=== PATIENT | male | born 1995 | race Caucasian/White ===

== ENCOUNTER 2019-09-26 21:13 | Inpatient (IN) ==
--- OUTSIDE RECORDS SUMMARY | 2019-09-26 21:17 | External Medical Summary | Continuity of Care Document ---
:1995 Author Name Crystal Angulo Address Unavailable Unavailable , Care Team Providers Name Role Phone Unavailable Unavailable Unavailable Pedro Bro M.D. Unavailable [email or web address] Unavailable Unavailable Unavailable Unavailable Unavailable Problems Asthma (493.90) (J45.909) Allergic rhinitis (477.9) (J30.9) Allergies and Adverse Reactions Penicillins (Allergy) Medications Albuterol Sulfate (2.5 MG/3ML) 0.083% In halation Nebulization Solution; INHALE ONE VIAL FOUR TIMES DAILY NEEDED Kev Bro Start: 01-Sep-2012 Quantity: 90 Refills: 6 Mary [facility] 30 MG TABS; TA KE ONE TABLET BY MOUTH TWICE DAILY NEEDED Kev Bro Start: 14-Apr-2011 Quantity: 60 Refills: 7 Procedures Procedures not documented Immunizations Influenza On: 22-Aug-2009 Plan of Treatment Planned Observations Planned Goals not documented Results No Known Results Results not documented
[2019-09-26] MEDS ORDERED: SODIUM CHLORIDE 0.9% 1000ML 1,000 ML IV ONE ×2 (22:31→23:40)
--- NOTE | 2019-09-26 22:51 | XRay Report ---
SINGLE VIEW CHEST CLINICAL HISTORY: Atypical chest pain. FINDINGS: An AP, portable, upright chest radiograph is obtained. No prior studies are available for c omparison at the time of dictation. The patient is status post midline sternotomy. The heart is enlar ged. The pulmonary vasculature is noncongested. A small left pleural effusion is identified with asso ciated left basilar atelectasis. The right lung appears clear. No pneumothorax is seen. The bony thor ax is grossly intact. IMPRESSION: 1. Cardiomegaly without radiographic evidence of congestive failure. 2. Small left pleural effusion. Electronically signed by: Wing Salter M.D. 09/26/2019 10:50 PM
[2019-09-26 23:12] LABS: Basophils # (auto) 0.03 K/uL (0-0.2); Basophils % (auto) 0.3 %; Eosinophils # (auto) 0.05 K/uL (0-0.5); Eosinophils % (auto) 0.5 %; Hematocrit (blood only) 41.7 % (42-52); Immature Granulocytes # (auto) 0.03 K/uL (0.00-0.02); Immature Granulocytes % (auto) 0.3 %; Lymphocytes # (auto) 1.24 K/uL (1.2-3.4); Lymphocytes % (auto) 11.2 %; Mean Corpuscular Hemoglobin 30.8 pg (25-34); Mean Corpuscular Hgb Conc 33.6 g/dL (32-36); Mean Corpuscular Volume 91.6 fL (80-100); Mean Platelet Volume 11.1 fL (7.4-10.4); Monocytes % (auto) 12.6 %; Neutrophils # (auto) 8.32 K/uL (1.4-6.5); Neutrophils % (auto) 75.1 %; Platelet Count 320 K/uL (130-400); RDW Coefficient of Variation 12.4 % (11.5-14.5); Red Blood Count 4.55 M/uL (4.7-6.1); White Blood Count 11.07 K/uL (4.8-10.8)
[2019-09-26 23:18] LABS: Alanine Aminotransferase 14 U/L (12-78); Albumin Level 4.2 gm/dl (3.4-5.0); Aspartate Aminotransferase 8 U/L (15-37); BUN Creatinine Ratio 9.8 (10-20); Blood Urea Nitrogen 12 mg/dl (7-18); Calcium 9.1 mg/dl (8.5-10.1); Carbon Dioxide 29 mmol/L (21-32); Chloride 100 mmol/L (98-107); Creatinine Clr Calc Pharmacy 92.3 ml/min; Est GFR (African American) 99.6; Est GFR (Non-African American) 85.9; Glucose 108 mg/dl (70-99); Lipase 95 U/L (73-393); Magnesium 1.9 mg/dl (1.8-2.4); Potassium 3.4 mmol/L (3.5-5.1); Sodium 138 mmol/L (136-145)
[2019-09-26 23:29] LABS: Alkaline Phosphatase 68 U/L (45-117); Bilirubin,Total 0.6 mg/dl (0.2-1); Globulin 4.2 gm/dl (2.5-4.0); Phosphorus 3.8 mg/dl (2.5-4.9); Thyroid Stimulating Hormone 0.326 uIu/ml (0.300-4.500); Total Protein 8.4 gm/dl (6.4-8.2); Troponin I < 0.015 ng/ml (0-0.045)
[2019-09-27 00:23] LABS: Influenza A virus by PCR Neg for Influ A (Neg); Influenza B virus by PCR Neg for Influ B (Neg)
[2019-09-27] MEDS ORDERED: DOXYCYCLINE HYCLATE 100 MG in DEXTROSE 5% 100 ML IV STA (01:52)
[2019-09-27] MEDS ORDERED: cefTRIAXone SODIUM 2,000 MG/70 ML BAG IV STA (01:52)
[2019-09-27] MEDS ORDERED: COLCHICINE 0.6 MG TAB PO ONE (01:52)
[2019-09-27] MEDS ORDERED: SODIUM CHLORIDE 0.9% 1000ML 1,000 ML IV STA (01:57)
[2019-09-27 02:41] LABS: Lyme Ab IgG w/WB Rflx Negative (Negative); Lyme Ab IgM w/WB Rflx Negative (Negative)
--- NOTE | 2019-09-27 03:27 | Emergency Department Note ---
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 He notes that he had a fever prior to arrival at 100.8. The patient reports that he had an aortic valve repaired a month ago. He notes that there was a bigeminy abnormality which was caused by bicuspid regurgitation. He states that he has been more fatigued on exertion lately. He notes that he has been having increased heart rate, when it normally is around 70 bpm. He reports that he has chills and loss of appetite. He denies any sore throat, burning during urination, cough, or congestion, chest pain, shortness of breath, headache, dizziness. Home Medications Home Medications Medication Instructions Recorded Confirmed Type aspirin [Aspir-81] 162 mg PO QDL 09/26/19 09/26/19 History ibuprofen 400 mg PO HS 09/26/19 09/26/19 History metoprolol tartrate 50 mg PO AMHS 09/26/19 09/26/19 History Allergies Allergy/AdvReac Type Severity Reaction Status Date / Time animal dander Allergy Intermediate ITCHY Verified 09/26/19 22:40 EYES, SNEEZING, CAN TRIGGER ASTHMA ATTACK. Past Med/Surg History Medical History Bicuspid aortic valve determined by imaging (Chronic) Essential tremor (Chronic) Social History Feels Safe at Home: Yes Smoking Status: Never smoker Review of Systems See HPI for pertinent positives & negatives. and A total of 10 systems reviewed and were otherwise negative Physical Exam Vital Signs Vital Signs - 24 hr 09/26/19 21:16 09/26/19 21:26 09/26/19 21:38 Temperature 36.4 C L Temperature Source Oral Sepsis Recent Fever Within 48 Hours No Sepsis Action Taken by Nursing No Action Required Pulse Rate 142 H 126 H 119 H Pulse Rate [Apical] Pulse Rate from SpO2 Sensor 127 H 119 H Respiratory Rate 18 22 24 Respiratory Effort / Characteristics Non-Labored Spontaneous Respiratory Depth Normal Blood Pressure 118/75 124/87 Blood Pressure [Right Arm] Blood Pressure Mean 89 99 Blood Pressure Mean [Right Arm] Pulse Oximetry 96 100 100 Oxygen Delivery Method Room Air 09/26/19 22:00 09/26/19 22:13 09/26/19 22:21 Temperature Temperature Source Sepsis Recent Fever Within 48 Hours Sepsis Action Taken by Nursing Pulse Rate 122 H 120 H Pulse Rate [Apical] Pulse Rate from SpO2 Sensor 121 H 120 H Respiratory Rate 27 H 25 H Respiratory Effort / Characteristics Respiratory Depth Blood Pressure 118/81 Blood Pressure [Right Arm] Blood Pressure Mean 93 Blood Pressure Mean [Right Arm] Pulse Oximetry 100 100 Oxygen Delivery Method Room Air 09/26/19 23:39 09/27/19 01:31 Temperature Temperature Source Sepsis Recent Fever Within 48 Hours Sepsis Action Taken by Nursing Pulse Rate Pulse Rate [Apical] 112 H 113 H Pulse Rate from SpO2 Sensor Respiratory Rate 16 16 Respiratory Effort / Characteristics Non-Labored Spontaneous Non-Labored Spontaneous Respiratory Depth Normal Normal Blood Pressure Blood Pressure [Right Arm] 123/88 121/81 Blood Pressure Mean Blood Pressure Mean [Right Arm] 99 94 Pulse Oximetry 100 99 Oxygen Delivery Method Room Air Room Air GENERAL: Awake, alert, fatigued-appearing, in no distress HENT: Normocephalic, atraumatic. Oropharynx with dry mucous membranes and otherwise unremarkable. EYES: Normal conjunctiva. Sclera non-icteric. NECK: Supple. No nuchal rigidity. FROM. No JVD. RESPIRATORY: Diminished left base. Otherwise, CTAB. CARDIAC: Tachycardic rate, Regular rhythm. Extremities warm and well perfused. Pulses equal. ABDOMEN: Soft, non-distended. No tenderness to palpation. No rebound or guarding. No masses. RECTAL: Deferred. MUSCULOSKELETAL: Chest examination reveals no tenderness. Sternal scar clean, dry, intact without erythema, warmth, or tenderness. The back is symmetrical on inspection without obvious abnormality. There is no CVA tenderness to palpation. No joint edema. LOWER EXTREMITIES: Calves are equal size bilaterally and non-tender. No edema. No discoloration. NEURO: Normal sensorium. No sensory or motor deficits noted. SKIN: No rash or jaundice noted. Course 2226: The patient was evaluated in room B2, and a complete history and physical examination were performed. Administered Medications Sodium Chloride (Nss 1000ml) 1,000 mls @ 250 mls/hr IV .Q4H STA Stop: 09/27/19 05:56 Last Admin: 09/27/19 02:22 Dose: 250 mls/hr Documented by: [id number] Discontinued Medications Colchicine (Colcrys) 0.6 mg PO NOW ONE Stop: 09/27/19 01:53 Last Admin: 09/27/19 02:22 Dose: 0.6 mg Documented by: [id number] Sodium Chloride (Nss 1000ml) 1,000 mls @ 999 mls/hr IV .Q1H1M ONE Stop: 09/26/19 23:31 Last Infusion: 09/27/19 00:19 Dose: 0 mls/hr Documented by: [id number] Admin: 09/26/19 23:16 Dose: 999 mls/hr Documented by: [id number] Sodium Chloride (Nss 1000ml) 1,000 mls @ 999 mls/hr IV .Q1H1M ONE Stop: 09/27/19 00:40 Last Infusion: 09/27/19 01:31 Dose: 0 mls/hr Documented by: [id number] Admin: 09/26/19 23:52 Dose: 999 mls/hr Documented by: [id number] Ceftriaxone Sodium (Rocephin) 2,000 mg in 70 mls @ 140 mls/hr IV NOW STA Stop: 09/27/19 02:21 Last Infusion: 09/27/19 02:58 Dose: 0 mls/hr Documented by: [id number] Admin: 09/27/19 02:22 Dose: 140 mls/hr Documented by: [id number] Medical Decision Making Differential Diagnosis Differential diagnosis: Etiologies such as viral syndrome, otitis, pharyngitis, pneumonia, influenza, meningitis, urinary tract infection, sepsis, bacteremia, as well as others were entertained. Medical Records Attestation: I reviewed the patient's medical records. Home Medications Current Medication List: was personally reviewed by me Laboratory Data Attestation: I reviewed the patient's lab results. Result diagrams: 09/26/19 21:35 09/26/19 21:35 Lab Results 09/26/19 09/26/19 09/26/19 Range/Units 21:35 21:35 21:35 WBC 11.07 H (4.8-10.8) K/uL RBC 4.55 L (4.7-6.1) M/uL Hgb 14.0 (14.0-18.0) g/dL Hct 41.7 L (42-52) % MCV 91.6 (80-100) fL MCH 30.8 (25-34) pg MCHC 33.6 (32-36) g/dL RDW Std Deviation 42.0 (36.4-46.3) fL RDW Coeff of Jefferson 12.4 (11.5-14.5) % Plt Count 320 (130-400) K/uL MPV 11.1 H (7.4-10.4) fL Immature Gran % (Auto) 0.3 % Neut % (Auto) 75.1 % Lymph % (Auto) 11.2 % Platte % (Auto) 12.6 % Eos % (Auto) 0.5 % Baso % (Auto) 0.3 % Immature Gran # (Auto) 0.03 H (0.00-0.02) K/uL Neut # (Auto) 8.32 H (1.4-6.5) K/uL Lymph # (Auto) 1.24 (1.2-3.4) K/uL Platte # (Auto) 1.40 H (0.11-0.59) K/uL Eos # (Auto) 0.05 (0-0.5) K/uL Baso # (Auto) 0.03 (0-0.2) K/uL Sodium 138 (136-145) mmol/L Potassium 3.4 L (3.5-5.1) mmol/L Chloride 100 (98-107) mmol/L Carbon Dioxide 29 (21-32) mmol/L Anion Gap 9.0 (3-11) BUN 12 (7-18) mg/dl Creatinine 1.20 (0.6-1.4) mg/dl Est Cr Clr Drug Dosing 92.3 ml/min Est GFR ( Amer) 99.6 Est GFR (Non-Af Amer) 85.9 BUN/Creatinine Ratio 9.8 L (10-20) Glucose 108 H (70-99) mg/dl Calcium 9.1 (8.5-10.1) mg/dl Phosphorus 3.8 (2.5-4.9) mg/dl Magnesium 1.9 (1.8-2.4) mg/dl Total Bilirubin 0.6 (0.2-1) mg/dl AST 8 L (15-37) U/L ALT 14 (12-78) U/L Alkaline Phosphatase 68 (45-117) U/L Troponin I < 0.015 (0-0.045) ng/ml Total Protein 8.4 H (6.4-8.2) gm/dl Albumin 4.2 (3.4-5.0) gm/dl Globulin 4.2 H (2.5-4.0) gm/dl Albumin/Globulin Ratio 1.0 (0.9-2) Lipase 95 (73-393) U/L TSH 0.326 (0.300-4.500) uIu/ml Anaplasma Smear See Comment A. phagocytophilum DNA Lyme Disease IgG Ab (Negative) Lyme Disease IgM Ab (Negative) Influenza Type A (PCR) (Neg) Influenza Type B (PCR) (Neg) 09/26/19 09/26/19 09/26/19 Range/Units 21:35 21:35 23:35 WBC (4.8-10.8) K/uL RBC (4.7-6.1) M/uL Hgb (14.0-18.0) g/dL Hct (42-52) % MCV (80-100) fL MCH (25-34) pg MCHC (32-36) g/dL RDW Std Deviation (36.4-46.3) fL RDW Coeff of Jefferson (11.5-14.5) % Plt Count (130-400) K/uL MPV (7.4-10.4) fL Immature Gran % (Auto) % Neut % (Auto) % Lymph % (Auto) % Platte % (Auto) % Eos % (Auto) % Baso % (Auto) % Immature Gran # (Auto) (0.00-0.02) K/uL Neut # (Auto) (1.4-6.5) K/uL Lymph # (Auto) (1.2-3.4) K/uL Platte # (Auto) (0.11-0.59) K/uL Eos # (Auto) (0-0.5) K/uL Baso # (Auto) (0-0.2) K/uL Sodium (136-145) mmol/L Potassium (3.5-5.1) mmol/L Chloride (98-107) mmol/L Carbon Dioxide (21-32) mmol/L Anion Gap (3-11) BUN (7-18) mg/dl Creatinine (0.6-1.4) mg/dl Est Cr Clr Drug Dosing ml/min Est GFR ( Amer) Est GFR (Non-Af Amer) BUN/Creatinine Ratio (10-20) Glucose (70-99) mg/dl Calcium (8.5-10.1) mg/dl Phosphorus (2.5-4.9) mg/dl Magnesium (1.8-2.4) mg/dl Total Bilirubin (0.2-1) mg/dl AST (15-37) U/L ALT (12-78) U/L Alkaline Phosphatase (45-117) U/L Troponin I (0-0.045) ng/ml Total Protein (6.4-8.2) gm/dl Albumin (3.4-5.0) gm/dl Globulin (2.5-4.0) gm/dl Albumin/Globulin Ratio (0.9-2) Lipase (73-393) U/L TSH (0.300-4.500) uIu/ml Anaplasma Smear A. phagocytophilum DNA Cancelled Lyme Disease IgG Ab Negative (Negative) Lyme Disease IgM Ab Negative (Negative) Influenza Type A (PCR) Neg for Influ A (Neg) Influenza Type B (PCR) Neg for Influ B (Neg) Imaging Data Radiologist's Impression: Radiology results as stated below per my review and the radiologist's interpretation: SINGLE VIEW CHEST CLINICAL HISTORY: Atypical chest pain. FINDINGS: An AP, portable, upright chest radiograph is obtained. No prior studies are available for comparison at the time of dictation. The patient is status post midline sternotomy. The heart is enlarged. The pulmonary vasculature is noncongested. A small left pleural effusion is identified with associated left basilar atelectasis. The right lung appears clear. No pneumothorax is seen. The bony thorax is grossly intact. IMPRESSION: 1. Cardiomegaly without radiographic evidence of congestive failure. 2. Small left pleural effusion. Electronically signed by: Wing Salter M.D. 09/26/2019 10:50 PM ECG Data Attestation: I personally reviewed and interpreted this ECG as follows: Indication: + tachycardia Rate (beats per minute): 123 Rhythm: + sinus tachycardia (Lvh) ECG Findings: + Other (T wave abnormality in lateral leads, no overt ischemic changes) Blood Pressure Blood Pressure Findings: Elevated blood pressure Blood Pressure Disposition: did not require urgent referral MDM Narrative The patient is a pleasant 23-year-old gentleman with a past medical history of bicuspid aortic valve status post aortic valve repair at [facility] at the end of July who presents emergency department with fevers to 100.8 at home with tachycardia per hpi. Of note, the patient reports he was treated for pericarditis following his procedure with 3 weeks of colchicine and ibuprofen. The review of the patient's [facility] report from the [facility] EMR does describe a small pneumothorax on the left which was resolved without intervention and a left pleural effusion that was showing improvement. The patient denies any recent infectious symptoms such as cough, congestion, nausea, vomiting diarrhea. He also denies any chest pain or shortness of breath. He denies difficulty lying flat. On arrival patient is in no acute distress, afebrile with heart rate in the 120-40s but vital signs otherwise stable. The patient appears clinically dry. He is nontoxic appearing. Initial EKG on arrival with heart rate in the 120s shows sinus tachycardia with LVH and T wave inversions in V5 V6 which are new when compared to EKG from 08/24 in the [facility] system. CXR with cardiomegaly without evidence of congestive failure. Left pleural effusion is appreciated as described in [facility] report. WBC 11, nonspecific. Hemoglobin and platelets within normal limits. Chemistry without acidosis. LFTs unremarkable. Troponin negative/undetectable. A limited bedside echo was performed given the patient's fever and tachycardia which did demonstrate a moderate sized circumferential pericardial effusion without ultrasound or clinical evidence of tamponade. The patient does have paperwork from [facility] with him including a post operative echo report that described a trivial pericardial effusion. Relatively speaking this does appear progressed. Patient's heart rate did improve to the 110s with IV fluid hydration alone. He also was due for his home dose of metoprolol which he took in the emergency department. Given the patient's tachycardia with a subjective fever at home in the setting of slightly progressed pericardial effusion in the setting of his recent aortic valve repair symptoms certainly could be consistent with a recurrence of his pericarditis. Reasonable to admit the patient for further management. Case was discussed with Dr. Floyd, [facility] hospitalist, will evaluate the patient for admission. He requests we touch base with cardiology for recommendations. I did discuss the case with Dr. Medrano, [facility] cardiology on-call, we agree that there is no need for emergent transfer to [facility] at this time. Recommends re-initiating Colchine at this time. Given blood cultures were drawn upon the patient's arrival recommends empiric antibiotics until further etiology to the patient's fever is clarified. We agree to send tick borne illness testing as well given the patient's outdoor exposures. Cardiology will evaluate the patient in the morning. Dr. Floyd was updated on cardiology recommendations. Patient was ordered for CTX and Doxycycline. 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 The cause of your symptoms is unclear at this time though certainly related to a component of dehydration given the improvement in your heart rate with IV fluids. The cause of your fever is unclear given he denies any infectious symptoms. However given the pleural effusion on your chest x-ray in the setting of your report of an objective fever of 100.8 prior to coming to the emergency department will treat for possible pneumonia. Blood cultures were drawn today and you will be contacted only if the results are positive. Otherwise, your exam, EKG, chest xray, and lab results did not show signs of an emergent condition at this time. Acetaminophen or ibuprofen for pain and fevers as needed. Cefdinir and Azithromycin as directed. Drink plenty of fluids to ensure hydration. Return to the emergency department for worsening symptoms as described in the accompanying instructions. Forms Stand Alone Forms: My [facility] Prescriptions Prescriptions: No Action aspirin [Aspir-81] 81 mg Tablet,Delayed Release (Dr/Ec) 162 mg PO QDL RF: 0 ibuprofen 400 mg Tablet 400 mg PO HS RF: 0 metoprolol tartrate 50 mg Tablet 50 mg PO AMHS RF: 0 Referrals Referrals: Aditya Tse, DO [Primary Care Provider] - The scribe's documentation has been prepared under my direction and personally reviewed by me in its entirety. I confirm that the note above accurately reflects all work, treatment, procedures, and medical decision making performed by me.
[2019-09-27] MEDS ORDERED: ONDANSETRON INJ 2 MG/ML 2 ML VIAL IV PRN (04:28)
[2019-09-27] MEDS ORDERED: ALBUTEROL HFA 8 GM INHALER INH PRN (04:28)
[2019-09-27] MEDS ORDERED: NITROGLYCERIN SL 0.4 MG/TAB TAB SL PRN (04:28)
[2019-09-27] MEDS ORDERED: VANCOMYCIN CONSULT ACTIVE PRN (04:28)
[2019-09-27] MEDS ORDERED: VANCOMYCIN HCL 1,000 MG in SODIUM CHLORIDE 0.9% 250 ML IV SCH (04:28)
[2019-09-27] MEDS ORDERED: POLYETHYLENE (MIRALAX) 17 GM PACK PO PRN (04:28)
[2019-09-27] MEDS ORDERED: VANCOMYCIN HCL 1,750 MG in SODIUM CHLORIDE 0.9% 500 ML IV SCH (05:00)
[2019-09-27] MEDS ORDERED: POTASSIUM CHLORIDE 20 MEQ TABCR PO STA ×2 (07:00→10:28)
[2019-09-27 07:11] LABS: Appearance Urine Clear (Clear); Bilirubin Urine Negative (Negative); Blood Urine Negative (Negative); Color Urine Dark Yellow; Glucose Urine UA Negative (Negative); Ketones Urine Trace (Negative); Leukocyte Esterase Urine Negative (Negative); Nitrite Urine Negative (Negative); Protein Urine Negative (Negative); Specific Gravity Urine 1.026 (1.000-1.030); Urobilinogen Urine Negative (Negative)
[2019-09-27 07:21] LABS: Basophils # (auto) 0.02 K/uL (0-0.2); Basophils % (auto) 0.3 %; Eosinophils # (auto) 0.18 K/uL (0-0.5); Eosinophils % (auto) 2.6 %; Hemoglobin 10.6 g/dL (14.0-18.0); Immature Granulocytes # (auto) 0.01 K/uL (0.00-0.02); Immature Granulocytes % (auto) 0.1 %; Lymphocytes % (auto) 29.4 %; Mean Corpuscular Hemoglobin 30.8 pg (25-34); Mean Corpuscular Hgb Conc 34.2 g/dL (32-36); Mean Corpuscular Volume 90.1 fL (80-100); Mean Platelet Volume 9.5 fL (7.4-10.4); Monocytes # (auto) 1.17 K/uL (0.11-0.59); Monocytes % (auto) 17.2 %; Neutrophils # (auto) 3.42 K/uL (1.4-6.5); Neutrophils % (auto) 50.4 %; Platelet Count 216 K/uL (130-400); RDW Coefficient of Variation 12.4 % (11.5-14.5); Red Blood Count 3.44 M/uL (4.7-6.1)
[2019-09-27 07:46] LABS: BUN Creatinine Ratio 12.8 (10-20); Calcium 7.9 mg/dl (8.5-10.1); Creatinine Clr Calc Pharmacy 102.5 ml/min; Est GFR (African American) 113.1; Est GFR (Non-African American) 97.6; Magnesium 1.8 mg/dl (1.8-2.4); Potassium 3.2 mmol/L (3.5-5.1)
--- NOTE | 2019-09-27 07:54 | History and Physical Report ---
DATE OF ADMISSION: 09/27/2019 CHIEF COMPLAINT: Palpitations. HISTORY OF PRESENT ILLNESS: This is a 23-year-old male with past medical history significant for mild persistent asthma without complication, allergic rhinitis, history of bicuspid aortic valve status post aortic valve repair done at [facility] on 08/17/2019. Post-surgery, he developed pneumothorax and improved on followup chest x-ray, he had some pericarditis, was sent home on colchicine, which he stopped about 10 days ago. He also followed with CT surgery at [place] and supposed to follow with cardiology coming Friday and he says he is doing okay, but since last , he developed palpitations. He noted mostly at rest, on ambulation he was okay. Denies any chest pain or shortness of breath or cough. No nausea, no vomiting. At home, he had a low-grade temperature and today the temperature went up to 100.3, when he came to the hospital. Here before coming, he took ibuprofen. In ER he is afebrile, but his heart rate was ranging from when he came in 120s-140s, currently in the less than 100. Blood pressures are okay. White count is 11,000. Rest of the labs are okay. Influenza negative. 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 He states if he stays in one side for a long time, he had some back pain and clavicle pain, but it goes away as he ambulates. Denies any headache, no dizziness, no blurred vision, no earache, no runny nose, no sore throat, no difficulty swallowing. Appetite is okay, sleeping okay. No nausea, no vomiting, no abdominal pain. Normal bowel and bladder movements. No hematuria or burning micturition, no blood in the stools. No swelling in the legs, no rash. Currently resting comfortably and hemodynamically stable. ALLERGIES: ANIMAL DANDER. PAST MEDICAL HISTORY: As mentioned. PAST SURGICAL HISTORY: Aortic valve replacement, valvuloplasty, aortic valve replaced on 07/2019. MEDICATIONS: Albuterol 2 puffs every 4 hours p.r.n., Elavil 100 mg p.o. daily, Flonase 2 sprays into each nostril daily, Anoro Ellipta 200 mcg 1 puff daily, aspirin 162 mg daily, Lopressor 50 mg p.o. b.i.d., amoxicillin 500 mg 4 capsules 1 hour prior to dental appointment. FAMILY HISTORY: Significant for father has allergies. Maternal grandfather had skin cancer and heart attack and stroke. Maternal grandmother had colon cancer. SOCIAL HISTORY: Single. No smoking, alcohol socially. No drug use. REVIEW OF SYMPTOMS: As per HPI. Rest of review of systems is negative. PHYSICAL EXAMINATION: GENERAL: The patient is of moderate built, not in acute distress. VITAL SIGNS: Temperature 36.4, pulse 94, respiratory rate 16, blood pressure 105/60, oxygen 94% room air. HEENT: No pallor, no icterus. Pupils equal, round, reactive to light. NECK: No JVD, no neck masses, no carotid bruits. CARDIOVASCULAR: S1, S2 heard, regular rate and rhythm, no murmur appreciated. Surgical scar healing well, no erythema or drainage seen.. RESPIRATORY SYSTEM: Normal AP diameter. No thyromegaly. No wheezing, no crackles. ABDOMEN: Soft, bowel sounds present, nontender. No distention. CENTRAL NERVOUS SYSTEM: Cranial nerves II-XII grossly nonfocal. EXTREMITIES: No edema most extremities. LABORATORY DATA: WBC 11.07, hemoglobin 14, hematocrit 41.7, platelets 320. Sodium 138, potassium 3.4, chloride 100, bicarbonate 29, BUN 12, creatinine 1.2, serum glucose 100, calcium 9.1, phosphorus 3.8, magnesium 1.9, total bilirubin 0.6, AST 8, ALT 14, alkaline phosphatase 60, troponin I less than 0.015. Lipase 95. TSH 0.2. Influenza A and B negative. Chest x-ray, cardiomegaly without radiographic evidence of CHF, small left pleural effusion. EKG: Initial EKG shows sinus tachycardia, rate of 100, possible left atrial enlargement, left ventricular hypertrophy, T-wave abnormalities in lateral leads. Repeat EKG shows normal sinus rhythm, rate of 95, possible left atrial enlargement, T-wave abnormalities in lateral leads with T-wave inversions in lateral leads. ASSESSMENT AND PLAN: This 23-year-old male who recently had aortic valve repair for his bicuspid aortic valve at [facility] on 08/17/2019, was on colchicine until about 10 days ago, presents with palpitations since last and also fever at home. 1. Palpitations, fever. He was tachycardic when he came in, but right now his heart rate has somewhat improved. Denies any chest pain or shortness of breath, or cough.Has fever. Flu is negative. Empiric antibiotic, Rocephin and vancomycin. Follow the blood cultures, echocardiogram. 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 We will place him on p.o. doxycycline for now. Cardiology was notified by the ER.Will continue his home Lopressor and aspirin. Npo until seen by cardiology. 2. Pericarditis. Bedside echo in the ER showed pericardial effusion. Cardiology recommended colchicine and antibiotics as above. We will follow echocardiogram. Also offered a CAT scan to the family, but mom states to wait until cardiac evaluation. 3. Mild persistent asthma, allergic rhinitis, recently saw allergy immunology. Albuterol p.r.n., Ellipta daily, which he not started yet. Mary 180 daily, but he takes it on and off 4. Deep vein thrombosis prophylaxis, sequential compression devices for now. DISPOSITION: Admit to tele floor. Expect discharge home to follow up with family doctor and cardiology. Level 1 full code. MTDD
[2019-09-27] MEDS: METOPROLOL TARTRATE 50 MG TAB PO SCH ×2 (08:01→21:17)
[2019-09-27] MEDS: COLCHICINE 0.6 MG TAB PO SCH (08:01)
--- NOTE | 2019-09-27 08:21 | Pharmacy Report ---
Pharmacy Abx Dose Short Note - Date of Service September 27, 2019 - Assessment & Plan Assessment 23yo M with recent bicuspid aortic valve repair. P/w fever, palpitations, tachy. BC x2 are drawn and pending. Receiving vancomycin, rocephin, doxy. Pt's population p'kinetics: t1/2=7.7, ke=[id number]. Given the acuity of his clinical picture, I have opted for a more aggressive dosing interval. If renal fxn Vancomcyin 1750mg (26mg/kg) IV x1 in ED to quickly achieve a therapeutic peak then vancomycin 1000mg (15mg/kg) q8 goal trough for r/o endocarditis will be 15-25mcg/mL trough ordered for 09/28 @1330, reflective of [facility] will continue to follow and will adjust dose/frequency as necessary. Thank you.
[2019-09-27] MEDS ORDERED: DOXYCYCLINE HYCLATE 100 MG CAP PO SCH (09:00)
--- NOTE | 2019-09-27 10:10 | Cardiology Consultation ---
Date of Consultation September 27, 2019 Assessment & Plan (1) Pericardial effusion: Pericardial effusion syndrome is present with borderline hemodynamic significance consistent with post pericardiotomy syndrome. Patient notably had pericarditis postoperatively was treated transiently with colchicine. I suspect this is the source of patient's fever and symptoms, cultures are pending and will be reviewed as available. We will discontinue oral doxycycline Begin gentle IV hydration Colchicine will be continued after restart last night ultimate goals 3 to 6 months of therapy Course of IV then oral corticosteroids will be administered given borderline hemodynamic significance Repeat echocardiogram in a.m. if no prompt improvement will likely refer for pericardiocentesis Patient be kept n.p.o. after midnight (2) S/P aortic valve repair: Echocardiogram reviewed and excellent post surgical result noted (3) Sinus tachycardia: Secondary to presenting complaints Will limit activities initially and give gentle hydration (4) Bicuspid aortic valve determined by imaging: History of Present Illness Reason for Consultation: Pericardial effusion, post pericardiotomy syndrome Requesting Physician: Dr Real Attending Physician: Kendal Real MD History of Present Illness Patient is a 23-year-old male with ongoing issues which include 1. Congenitally bicuspid aortic valve 2. Severe aortic insufficiency 3. Status post aortic valve surgical repair 08/17/2019, [facility] 4. Postoperative pericarditis, transient pneumothorax. Patient was treated with colchicine until approximately 10 days ago Patient presents this admission noting gradual decline in generally improving function over the past several days with heart pounding weakness fatigue and low-grade temperature. He presented to the emergency room last evening with symptoms with temperature of 100.3 observed. A pericardial effusion was found on [id number] ultrasound. Patient was begun empirically on antibiotic therapies last night. Colchicine was resumed and he is referred now for further evaluation. Patient this morning notes no acute changes. Notes no syncope or near syncope. Does feel his heart pounding when upright and moving. Was aware of potential low-grade fever yesterday. No chills or Reiger's. No bleeding difficulties. No cough or shortness wheeze or mopped assist. Appetite is been only fair with recent decline has been able to take medications as prescribed. Not been aware of any hematuria melena hematochezia dysuria Allergies Allergy/AdvReac Type Severity Reaction Status Date / Time animal dander Allergy Intermediate ITCHY Verified 11/03/19 22:40 EYES, SNEEZING, CAN TRIGGER ASTHMA ATTACK. Home Medications Home Medications Medication Instructions Recorded Confirmed Type aspirin [Aspir-81] 162 mg PO QDL 09/26/19 09/26/19 History metoprolol tartrate 50 mg PO AMHS 09/26/19 09/26/19 History albuterol sulfate 2 puff INHALATION Q6H PRN 09/27/19 09/27/19 History fexofenadine 180 mg PO DAILY 09/27/19 09/27/19 History fluticasone furoate [Arnuity 1 inh INHALATION DAILY 09/27/19 09/27/19 History Ellipta] Patient History Medical History Bicuspid aortic valve determined by imaging (Chronic) Essential tremor (Chronic) Social History Beliefs That Will Affect Care: None Current Living Situation: Other Other Information That Helps Us Care for You: No Feels Safe at Home: Yes Safety Concerns: Feels Safe At This Time Smoking Status: Never smoker Hx Alcohol Use: No Hx Substance Use: No Review of Systems Review of Systems: All systems reviewed & are unremarkable except as noted in HPI & below Physical Exam Constitutional: WD/WN, vitals as above Eyes: PERRL, conjunctivae normal, anicteric sclerae ENMT: external ear and nose normal, oropharynx normal Neck: trachea midline, no thyromegaly Respiratory: normal respiratory effort, lungs clear to auscultation Cardiovascular: Rate/Rhythm: regular rate and regular rhythm Heart Sounds: normal S1, normal S2 and + murmur (Grade 1/6 systolic no diastolic); no gallop Palpation: normal PMI Vessels: normal carotid upstroke and radial pulses present; no JVD and no carotid bruit Extremities: no edema Chest (Breasts): Additional Comments: Well-healed midline incision Gastrointestinal (Abdomen): normal bowel sounds, soft, nontender, no hepatosplenomegaly Musculoskeletal: no cyanosis or clubbing, extremities motor strength 5/5 Skin: no rashes, warm and dry Neurologic: PERRL, EOMI, accommodation nl, no face palsy, no dysarthria Psychiatric: A+Ox3, euthymic affect Results & Data Vital Signs (Past 12 Hours) Vital Signs Temp Pulse Pulse Resp BP BP Pulse Ox 09/27/19 07:43 36.7 C 87 17 109/71 98 09/27/19 04:40 36.9 C 90 16 110/73 98 09/27/19 04:33 09/27/19 04:15 94 H 18 106/65 98 09/27/19 03:45 94 H 16 105/69 97 09/27/19 01:31 113 H 16 121/81 99 09/26/19 23:39 112 H 16 123/88 100 09/26/19 22:13 120 H 25 H 118/81 100 Pulse Ox 09/27/19 07:43 09/27/19 04:40 09/27/19 04:33 99 09/27/19 04:15 09/27/19 03:45 09/27/19 01:31 09/26/19 23:39 09/26/19 22:13 Laboratory Results Laboratory Results - last 24 hr 09/26/19 09/26/19 09/26/19 21:35 21:35 21:35 WBC 11.07 H RBC 4.55 L Hgb 14.0 Hct 41.7 L MCV 91.6 MCH 30.8 MCHC 33.6 RDW Std Deviation 42.0 RDW Coeff of [place] 12.4 Plt Count 320 MPV 11.1 H Immature Gran % (Auto) 0.3 Neut % (Auto) 75.1 Lymph % (Auto) 11.2 [place] % (Auto) 12.6 Eos % (Auto) 0.5 Baso % (Auto) 0.3 Immature Gran # (Auto) 0.03 H Neut # (Auto) 8.32 H Lymph # (Auto) 1.24 [place] # (Auto) 1.40 H Eos # (Auto) 0.05 Baso # (Auto) 0.03 Sodium 138 Potassium 3.4 L Chloride 100 Carbon Dioxide 29 Anion Gap 9.0 BUN 12 Creatinine 1.20 Est Cr Clr Drug Dosing 92.3 Est GFR ( Amer) 99.6 Est GFR (Non-Af Amer) 85.9 BUN/Creatinine Ratio 9.8 L Glucose 108 H Calcium 9.1 Phosphorus 3.8 Magnesium 1.9 Total Bilirubin 0.6 AST 8 L ALT 14 Alkaline Phosphatase 68 Troponin I < 0.015 Total Protein 8.4 H Albumin 4.2 Globulin 4.2 H Albumin/Globulin Ratio 1.0 Lipase 95 TSH 0.326 Urine Color Urine Appearance Urine pH Ur Specific [place] Urine Protein Urine Glucose (UA) Urine Ketones Urine Blood Urine Nitrite Urine Bilirubin Urine Urobilinogen Ur Leukocyte Esterase Anaplasma Smear See Comment A. phagocytophilum DNA Lyme Disease IgG Ab Lyme Disease IgM Ab E.chaffeensis DNA (PCR) Influenza Type A (PCR) Influenza Type B (PCR) Rickettsia IgG Ab Rickettsia IgM Ab 09/26/19 09/26/19 09/26/19 21:35 21:35 21:35 WBC RBC Hgb Hct MCV MCH MCHC RDW Std Deviation RDW Coeff of [place] Plt Count MPV Immature Gran % (Auto) Neut % (Auto) Lymph % (Auto) [place] % (Auto) Eos % (Auto) Baso % (Auto) Immature Gran # (Auto) Neut # (Auto) Lymph # (Auto) [place] # (Auto) Eos # (Auto) Baso # (Auto) Sodium Potassium Chloride Carbon Dioxide Anion Gap BUN Creatinine Est Cr Clr Drug Dosing Est GFR ( Amer) Est GFR (Non-Af Amer) BUN/Creatinine Ratio Glucose Calcium Phosphorus Magnesium Total Bilirubin AST ALT Alkaline Phosphatase Troponin I Total Protein Albumin Globulin Albumin/Globulin Ratio Lipase TSH Urine Color Urine Appearance Urine pH Ur Specific [place] Urine Protein Urine Glucose (UA) Urine Ketones Urine Blood Urine Nitrite Urine Bilirubin Urine Urobilinogen Ur Leukocyte Esterase Anaplasma Smear A. phagocytophilum DNA Pending Cancelled Lyme Disease IgG Ab Negative Lyme Disease IgM Ab Negative E.chaffeensis DNA (PCR) Pending Influenza Type A (PCR) Influenza Type B (PCR) Rickettsia IgG Ab Pending Rickettsia IgM Ab Pending 09/26/19 09/27/19 09/27/19 23:35 06:15 06:56 WBC RBC Hgb Hct MCV MCH MCHC RDW Std Deviation RDW Coeff of [place] Plt Count MPV Immature Gran % (Auto) Neut % (Auto) Lymph % (Auto) [place] % (Auto) Eos % (Auto) Baso % (Auto) Immature Gran # (Auto) Neut # (Auto) Lymph # (Auto) [place] # (Auto) Eos # (Auto) Baso # (Auto) Sodium 141 Potassium 3.2 L Chloride 107 Carbon Dioxide 29 Anion Gap 5.0 BUN 14 Creatinine 1.08 Est Cr Clr Drug Dosing 102.5 Est GFR ( Amer) 113.1 Est GFR (Non-Af Amer) 97.6 BUN/Creatinine Ratio 12.8 Glucose 84 Calcium 7.9 L Phosphorus Magnesium 1.8 Total Bilirubin AST ALT Alkaline Phosphatase Troponin I Total Protein Albumin Globulin Albumin/Globulin Ratio Lipase TSH Urine Color Dark Yellow Urine Appearance Clear Urine pH 6.0 Ur Specific [place] 1.026 Urine Protein Negative Urine Glucose (UA) Negative Urine Ketones Trace H Urine Blood Negative Urine Nitrite Negative Urine Bilirubin Negative Urine Urobilinogen Negative Ur Leukocyte Esterase Negative Anaplasma Smear A. phagocytophilum DNA Lyme Disease IgG Ab Lyme Disease IgM Ab E.chaffeensis DNA (PCR) Influenza Type A (PCR) Neg for Influ A Influenza Type B (PCR) Neg for Influ B Rickettsia IgG Ab Rickettsia IgM Ab 09/27/19 09/27/19 06:56 06:56 WBC 6.80 RBC 3.44 L Hgb 10.6 L D Hct 31.0 L MCV 90.1 MCH 30.8 MCHC 34.2 RDW Std Deviation 41.0 RDW Coeff of [place] 12.4 Plt Count 216 MPV 9.5 Immature Gran % (Auto) 0.1 Neut % (Auto) 50.4 Lymph % (Auto) 29.4 [place] % (Auto) 17.2 Eos % (Auto) 2.6 Baso % (Auto) 0.3 Immature Gran # (Auto) 0.01 Neut # (Auto) 3.42 Lymph # (Auto) 2.00 [place] # (Auto) 1.17 H Eos # (Auto) 0.18 Baso # (Auto) 0.02 Sodium Potassium Chloride Carbon Dioxide Anion Gap BUN Creatinine Est Cr Clr Drug Dosing Est GFR ( Amer) Est GFR (Non-Af Amer) BUN/Creatinine Ratio Glucose Calcium Phosphorus Magnesium Total Bilirubin AST ALT Alkaline Phosphatase Troponin I < 0.015 Total Protein Albumin Globulin Albumin/Globulin Ratio Lipase TSH Urine Color Urine Appearance Urine pH Ur Specific [place] Urine Protein Urine Glucose (UA) Urine Ketones Urine Blood Urine Nitrite Urine Bilirubin Urine Urobilinogen Ur Leukocyte Esterase Anaplasma Smear A. phagocytophilum DNA Lyme Disease IgG Ab Lyme Disease IgM Ab E.chaffeensis DNA (PCR) Influenza Type A (PCR) Influenza Type B (PCR) Rickettsia IgG Ab Rickettsia IgM Ab Diagnostic Findings 27-SEP-2019 03:42:29 [facility]-EDSTAT ROUTINE RETRIEVAL Normal sinus rhythm Possible Left atrial enlargement T wave abnormality, consider lateral ischemia Abnormal ECG When compared with ECG of 26-SEP-2019 21:23, (unconfirmed) T wave inversion now evident in Anterior leads, heart rate 95 Echocardiogram 09/27/2019: Overall normal systolic function EF 5055% with mild hypertrophy Bicuspid aortic valve status post surgical repair without significant stenosis trace aortic insufficiency Large predominantly circumferential pericardial effusion of borderline hemodynamic significance, small right ventricle
[2019-09-27] MEDS ORDERED: methylPREDNISolone 125 MG/2 ML VIAL IV STA (10:24)
[2019-09-27] MEDS: ASPIRIN 81 MG ECTAB PO SCH (11:43)
[2019-09-27] MEDS: VANCOMYCIN HCL 1,000 MG in SODIUM CHLORIDE 0.9% 250 ML IV SCH ×2 (14:25→21:17)
--- NOTE | 2019-09-27 15:57 | Communication Note ---
Patient was seen and evaluated No complaint at this time General: No acute distress and not ill appearing Eyes: PERRL, conjunctivae normal, not pale, anicteric sclerae, EOM intact bilaterally ENMT: External ear and nose normal, oropharynx normal Neck: Normal visual inspection, no tracheal deviation, no swelling noted Respiratory: Normal respiratory effort, no respiratory distress, lungs clear to auscultation, no crackles and no wheezes Cardiovascular: Pulse is RRR. Heart Sounds: normal S1 and normal S2. Vessels: normal peripheral pulses Extremities: no pedal edema Chest (Breasts): Chest: normal inspection of chest. Well healed surgical scar Gastrointestinal (Abdomen): Abdomen is not distended, soft, non-tender to palpation, no guarding, no palpable hepatosplenomegaly, normal bowel sounds Musculoskeletal: No cyanosis or clubbing, all extremities motor strength 5/5 Skin: No rash noted on gross inspection, No ulcers noted Neurologic: Alert and oriented x 3, No focal weakness, sensation grossly intact Psychiatric: Alert and oriented x 3, euthymic affect, no depressed affect Lymphatic: No cervical and axillary lymphadenopathy Plan: Will continue colchicine and iv steroid Repeat 2D echo tomorrow morning Monitor vitals Continue telemetry monitoring Antibiotics discontinued Cardiology on board Other plans as in H/P today
[2019-09-27] MEDS ORDERED: methylPREDNISolone 40 MG in SYRINGE 0 ML IV ONE (20:00)
[2019-09-28] MEDS ORDERED: cefTRIAXone SODIUM 2,000 MG in DEXTROSE 5% 50 ML IV SCH (02:00)
[2019-09-28] MEDS: VANCOMYCIN HCL 1,000 MG in SODIUM CHLORIDE 0.9% 250 ML IV SCH (06:14)
[2019-09-28 06:20] LABS: Hematocrit (blood only) 32.3 % (42-52); Hemoglobin 11.1 g/dL (14.0-18.0); Mean Corpuscular Hemoglobin 30.5 pg (25-34); Mean Corpuscular Hgb Conc 34.4 g/dL (32-36); Mean Corpuscular Volume 88.7 fL (80-100); Mean Platelet Volume 9.8 fL (7.4-10.4); Platelet Count 262 K/uL (130-400); RDW Coefficient of Variation 12.1 % (11.5-14.5); RDW Standard Deviation 39.4 fL (36.4-46.3); Red Blood Count 3.64 M/uL (4.7-6.1); White Blood Count 8.14 K/uL (4.8-10.8)
[2019-09-28 06:28] LABS: INR 1.2 (0.9-1.1); Prothrombin Time 12.2 Seconds (9.0-12.0)
[2019-09-28 07:04] LABS: BUN Creatinine Ratio 14.9 (10-20); Blood Urea Nitrogen 11 mg/dl (7-18); Calcium 8.8 mg/dl (8.5-10.1); Carbon Dioxide 27 mmol/L (21-32); Chloride 107 mmol/L (98-107); Creatinine Clr Calc Pharmacy 147.7 ml/min; Est GFR (African American) > 150.0; Est GFR (Non-African American) 130.4; Glucose 135 mg/dl (70-99); Potassium 3.9 mmol/L (3.5-5.1); Sodium 139 mmol/L (136-145)
[2019-09-28] MEDS: METOPROLOL TARTRATE 50 MG TAB PO SCH ×2 (08:17→21:05)
[2019-09-28] MEDS: COLCHICINE 0.6 MG TAB PO SCH (08:17)
--- NOTE | 2019-09-28 09:34 | Cardiology Progress Note ---
Date of Service September 28, 2019 Assessment & Plan (1) Pericardial effusion: Pericardial effusion syndrome is present with borderline hemodynamic significance consistent with post pericardiotomy syndrome. Patient notably had pericarditis postoperatively was treated transiently with colchicine. I suspect this is the source of patient's fever and symptoms, cultures are pending and will be reviewed as available. Begin gentle IV hydration Colchicine will be continued after restart last night ultimate goals 3 to 6 months of therapy No clinical response to corticosteroids with large pericardial effusion present Echocardiogram demonstrates slightly greater RV impingement Plan: Patient will be referred for pericardiocentesis later today. Discussed in detail with patient and mother We will anticipate possible transfer to the intensive care unit if drainage catheter left in place (2) S/P aortic valve repair: Echocardiogram reviewed and excellent post surgical result noted (3) Sinus tachycardia: Secondary to presenting complaints Heart rates better today, IV fluids begun (4) Bicuspid aortic valve determined by imaging: Subjective Patient was seen and examined, chart, medications, telemetry reviewed. Repeat echocardiogram from this morning personally reviewed. Patient denies any acute complaints overnight notes no chest pain or discomfort notes no dizziness or lightheadedness notes no pleuritic discomfort Has remained n.p.o. after midnight Echocardiogram demonstrates persistent large pericardial effusion with right ventricular impingement Physical Exam Constitutional: WD/WN, vitals as above Eyes: PERRL, conjunctivae normal, anicteric sclerae ENMT: external ear and nose normal, oropharynx normal Neck: trachea midline, no thyromegaly Respiratory: normal respiratory effort, lungs clear to auscultation Cardiovascular: Rate/Rhythm: regular rate and regular rhythm Heart Sounds: normal S1, normal S2 and + murmur (Grade 1/6 systolic no diastolic); no gallop Palpation: normal PMI Vessels: normal carotid upstroke and radial pulses present; no JVD and no carotid bruit Extremities: no edema Gastrointestinal (Abdomen): normal bowel sounds, soft, nontender, no hepatosplenomegaly Musculoskeletal: no cyanosis or clubbing, extremities motor strength 5/5 Skin: no rashes, warm and dry Neurologic: PERRL, EOMI, accommodation nl, no face palsy, no dysarthria Psychiatric: A+Ox3, euthymic affect Results & Data Vital Signs (Past 12 Hours) Vital Signs Temp Pulse Resp BP Pulse Ox 09/28/19 06:51 36.4 C L 80 20 124/65 99 09/28/19 04:07 36.3 C L 64 18 118/76 97 09/27/19 23:15 36.6 C 77 16 115/70 96 Laboratory Results Laboratory Results - last 24 hr 09/27/19 09/28/19 09/28/19 12:47 06:06 06:06 WBC 8.14 RBC 3.64 L Hgb 11.1 L Hct 32.3 L MCV 88.7 MCH 30.5 MCHC 34.4 RDW Std Deviation 39.4 RDW Coeff of [place] 12.1 Plt Count 262 MPV 9.8 PT 12.2 H INR 1.2 H Sodium Potassium Chloride Carbon Dioxide Anion Gap BUN Creatinine Est Cr Clr Drug Dosing Est GFR ( Amer) Est GFR (Non-Af Amer) BUN/Creatinine Ratio Glucose Calcium Troponin I < 0.015 09/28/19 06:06 WBC RBC Hgb Hct MCV MCH MCHC RDW Std Deviation RDW Coeff of [place] Plt Count MPV PT INR Sodium 139 Potassium 3.9 D Chloride 107 Carbon Dioxide 27 Anion Gap 5.0 BUN 11 Creatinine 0.76 D Est Cr Clr Drug Dosing 147.7 Est GFR ( Amer) > 150.0 Est GFR (Non-Af Amer) 130.4 BUN/Creatinine Ratio 14.9 Glucose 135 H Calcium 8.8 Troponin I
[2019-09-28] MEDS: SODIUM CHLORIDE 0.9% 1000ML 1,000 ML IV SCH (10:06)
[2019-09-28] MEDS ORDERED: fentaNYL citrate 100 MCG/2 ML VIAL ONE (11:52)
[2019-09-28] MEDS ORDERED: MIDAZOLAM HCL 1 MG/ML 2ML VIAL ONE ×2 (11:52→12:26)
[2019-09-28] MEDS ORDERED: LIDOCAINE HCL 1% 20 ML VIAL ONE (12:26)
--- NOTE | 2019-09-28 13:07 | Pre Anesthesia Assessment ---
Date of Service September 28, 2019 Pre Sedation Assessment Vital Signs Temp Pulse Pulse Resp BP Pulse Ox 09/28/19 08:00 57 L 09/28/19 06:51 97.5 F L 80 20 124/65 99 09/28/19 04:07 97.3 F L 64 18 118/76 97 09/27/19 23:15 97.9 F 77 16 115/70 96 09/27/19 19:40 98.4 F 92 H 20 120/77 97 09/27/19 15:04 98.1 F 84 18 118/77 100 Cardiovascular RRR, no murmur, no edema Respiratory normal respiratory effort, lungs clear to auscultation Pre-Sedation Airway Assessment Smoking Status: Never smoker Hx Sleep Apnea: No Hx Difficult Intubation: No Short, Thick Neck: No Thyromental Distance: > or= 3.5 Finger Breadths Oral Cavity: + WNL Mallampati Class: II ASA: ASA3 Procedure Planning Contraindications for Sedation: none Current Medications Reviewed: Yes Notes The planned sedation has been discussed with the patient. Informed Consent was obtained. I have identified the patient, determined the appropriateness of sedation and have assessed the patient immediately prior to the procedure. All medicine(s) and interventions are by my order.
--- NOTE | 2019-09-28 13:08 | Post Anesthesia Assessment ---
Date of Service September 28, 2019 Post Sedation Assessment Vital Signs Temp Pulse Pulse Resp BP Pulse Ox 09/28/19 08:00 57 L 09/28/19 06:51 97.5 F L 80 20 124/65 99 09/28/19 04:07 97.3 F L 64 18 118/76 97 09/27/19 23:15 97.9 F 77 16 115/70 96 09/27/19 19:40 98.4 F 92 H 20 120/77 97 09/27/19 15:04 98.1 F 84 18 118/77 100 Recovery Score Activity: Moves 4 extremities Respiration: Deep Breath/Cough Circulation: +/-20% PreAnes Value Consciousness: Fully Awake Oxygen Saturation: O2 needed for >90% Discharge Sedation Level of Care: Fast Track Phase II Post Sedation Plan On clinical assessment, the patient appears to have tolerated the sedation without complications. Patient is recovering as anticipated. Patient will continue to be monitored by nursing and may be discharged when sedation discharge criteria are met per below protocol. Upon Completions of procedure and additional 15 minutes continue every 5 minute vital signs and the P.A.R. score; then discharge to a Phase I or Fast Track to Phase II per the following guidelines: * Discharge Patient to appropriate Phase II area if PAR is 8 or greater or return to pre- procedure baseline. The post - procedure orders will be as directed. * If PAR score is less than 8 or not return to pre-procedure baseline then patient will follow Phase I monitoring till PAR is reached for Phase II. The Phase I may be done in procedure room or may call to secure a Phase I area. * If naloxone or flumazenil are used for reversal, hold in Phase I for continued monitoring from when last reversal dose was given for a minimum of 60 minutes or longer pending the nurse and/or physician discretion of patient condition before discharge to Phase II. Please call the Sedation Physician to re-evaluate and complete post-note for discharge to Phase II area. Do NOT discharge from procedure sedation or Phase 1 until post- sedation evaluation note is complete by procedure /sedation MD Sedation Discharge Instructions to be given to the patient at discharge to home.
--- NOTE | 2019-09-28 13:15 | Operative Report ---
[facility] Post Operative Report Pre & Post Diagnosis Operation Date: 09/28/19 11:00 <No data on this case meets the specified criteria> I identified the patient and participated in the time-out.: Yes Procedure Operation Date: 09/28/19 11:00 Actual Procedures p Pericardiocentesis Initial - Adonis Hilton MD Surgeon Hernando Hilton MD Resident Medical Officer Bro Estimated Blood Loss 5 Findings Moderate to large circumferential pericardial effusion. Specimens 60 ml of pericardial fluid Drains Pericardial drain Anesthesia Type RN Sedation Complications none Disposition Disposition: Surgical ICU Indications Large pericardial effusion post aortic valve repair more than 1 month ago. Description of Procedure Patient prepped in sterile fashion Moderate sedation with fentanyl, Versed (75 mcg, 2 mg). Repeat echo images obtained to assist easiest approach to pericardial fluid 1% lidocaine administered Using micropuncture needle from an apical approach pericardial space accessed Pericardial space access confirmed via agitated saline injection visualized on echo 6 Fr pigtail catheter placed into pericardial space A total of 350 mL of bloody pericardial fluid removed. Post procedure only a small amount of posterior fluid visualized on echo. No apparent complications Pigtail catheter sutured into place - Fluoro 58 mGy Summary: 1. Successful pericardiocentesis of 350 mL of bloody fluid Recommendations: Pericardial drain to gravity. Repeat echocardiogram in a.m. If no significant reaccumulation plan to pull drain tomorrow. Pericardial fluid sent to lab for cell count, cultures. I attest to the content of the Intraoperative Record and any orders documented therein. Any exceptions are noted below.
[2019-09-28] MEDS: ACETAMINOPHEN 325 MG TAB PO PRN ×2 (13:28→16:17)
[2019-09-28] MEDS ORDERED: VANCOMYCIN TROUGH ONE (13:30)
[2019-09-28] MEDS: ASPIRIN 81 MG ECTAB PO SCH (13:55)
--- NOTE | 2019-09-28 13:57 | Critical Care Consultation ---
Date of Consultation September 28, 2019 Assessment & Plan (1) Pericardial effusion: Reason Critically Ill: Mr. Andrew Arnold is a 23 y/o male with history of asthma and bicuspid aortic valve status post aortic valve repair performed at [facility] on 08/17/2019 who was brought to ICU for hemodynamic monitoring and critical care management s/p pericardiocentesis with pericardial drain for pericardial effusion. Neuro: alert and oriented x 3 Cardiac/Vascular Hx of bicuspid aortic valve s/p repair on 08/17/19 at [facility]. Post-op care for Pericardiocentesis with Pericardial drain for Pericardial effusion. Fluid pending lab analysis. Noted for 350mL bloody drainage. Hemodynamically stable - continue cardiac/hemodynamic monitoring c/w ASA 162mg c/w Colchicine 0.6mg qAM c/w Lopressor 50mg qAMHS Nitro SL for chest pain PRN Pulm Hx of asthma Oxygenating well on room air Albuterol inhaler PRN GI: Heart healthy diet Renal/Lytes No electrolyte abnormalities noted Gentle hydration with IVF NSS 80mLs/hr : No current grubbs Endo: No hx of diabetes or thyroid disorder Heme: WBC WNL, platelets WNL Hgb at 11.1 will trend, noted pericardial bloody fluid drained, no other signs of bleeding. ID: Prior on Vanc and Rocephin which was discontinued. 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 Blood cultures drawn 09/26 NGTD Cultures pending from pericardial fluid obtained from procedure today Lines: peripheral IVs Pericardial drain DVT ppx: Rx not appropriate as pericardial fluid was bloody in appearance and concerns for reaccumulation if given anti-coagulation Resuscitation status: Full Code (2) S/P aortic valve repair: (3) Sinus tachycardia: (4) Bicuspid aortic valve determined by imaging: Supervising Physician Co-Signing Physician Notes Dr. Montaño was resident physician during care of patient. I separately evaluated patient for cardoso portions of the history and the exam. I was present during the critical portion of medical decision making, and I discussed the case with the resident. I generally agree with the findings and plan. Pericardial drain intact, no clot noted in bag approximately 300 mL's of fluid. Patient asymptomatic at this time continued ICU monitoring for indwelling pericardial drain. History of Present Illness Reason for Consultation: Hemodynamic monitoring post-op Pericardiocentesis with pericardial drain Attending Physician: Shahida Us MD History of Present Illness Mr. Andrew Arnold is a 23 y/o male with history of asthma and bicuspid aortic valve status post aortic valve repair performed at [facility] on 08/17/2019 who presented to [facility] ED two nights ago for fever and palpitations. He noted bicuspid aortic valve was found after syncopal episode. He was admitted for fever, palpitations and further work up indicated a pericardial effusion. He had a pericardiocentesis performed today with Pericardial drain. He notes no current dyspnea, nausea, diaphoresis. Allergies Allergy/AdvReac Type Severity Reaction Status Date / Time animal dander Allergy Intermediate ITCHY Verified 09/26/19 22:40 EYES, SNEEZING, CAN TRIGGER ASTHMA ATTACK. Home Medications Home Medications Medication Instructions Recorded Confirmed Type aspirin [Aspir-81] 162 mg PO QDL 09/26/19 09/26/19 History metoprolol tartrate 50 mg PO AMHS 09/26/19 09/26/19 History albuterol sulfate 2 puff INHALATION Q6H PRN 09/27/19 09/27/19 History fexofenadine 180 mg PO DAILY 09/27/19 09/27/19 History fluticasone furoate [Arnuity 1 inh INHALATION DAILY 09/27/19 09/27/19 History Ellipta] Patient History Medical History Bicuspid aortic valve determined by imaging (Chronic) Essential tremor (Chronic) Social History Beliefs That Will Affect Care: None Current Living Situation: Other Other Information That Helps Us Care for You: No Feels Safe at Home: Yes Safety Concerns: Feels Safe At This Time Smoking Status: Never smoker Hx Alcohol Use: No Hx Substance Use: No Review of Systems Review of Systems: All systems reviewed & are unremarkable except as noted in HPI & below Constitutional: + fever Eyes: no diplopia and no photophobia Ear, Nose, Mouth, Throat: no nasal congestion and no epistaxis Respiratory: no cough and no dyspnea Cardiovascular: no radiating jaw, neck or arm pain and no lightheadedness Gastrointestinal: no abdominal pain and no nausea Genitourinary: no dysuria and no flank pain Integumentary: no rash and no non-healing lesions Neurologic: no numbness and no headache(s) Physical Exam Constitutional: WD/WN, vitals as above cooperative and comfortable Eyes: PERRL and EOM intact bilaterally ENMT: external ear and nose normal, oropharynx normal Neck: normal visual inspection and trachea midline Respiratory: normal respiratory effort, lungs clear to auscultation Cardiovascular: Rate/Rhythm: regular rate and regular rhythm Extremities: no pedal edema central midline well healing surgical incision consistent with prior aortic valve repair; pericardial drain present Gastrointestinal (Abdomen): Percussion/Palpation: abdomen soft; abdomen nontender and no guarding Musculoskeletal: Head/Neck/Chest: normocephalic and head atraumatic Skin: no rashes, warm and dry Neurologic: moves all extremities and awake Psychiatric: A+Ox3, euthymic affect Results & Data Vital Signs (Past 12 Hours) Vital Signs Temp Pulse Pulse Resp BP Pulse Ox 09/28/19 13:25 71 18 130/84 98 09/28/19 13:10 73 18 131/83 99 09/28/19 08:00 57 L 09/28/19 06:51 36.4 C L 80 20 124/65 99 09/28/19 04:07 36.3 C L 64 18 118/76 97 Laboratory Results Laboratory Results - last 24 hr 09/28/19 09/28/19 09/28/19 06:06 06:06 06:06 WBC 8.14 RBC 3.64 L Hgb 11.1 L Hct 32.3 L MCV 88.7 MCH 30.5 MCHC 34.4 RDW Std Deviation 39.4 RDW Coeff of [place] 12.1 Plt Count 262 MPV 9.8 PT 12.2 H INR 1.2 H Sodium 139 Potassium 3.9 D Chloride 107 Carbon Dioxide 27 Anion Gap 5.0 BUN 11 Creatinine 0.76 D Est Cr Clr Drug Dosing 147.7 Est GFR ( Amer) > 150.0 Est GFR (Non-Af Amer) 130.4 BUN/Creatinine Ratio 14.9 Glucose 135 H Calcium 8.8 Fluid Neutrophils % Fluid Lymphocytes % Fluid Eosinophils % Fluid Meso/Macro/[place] % Pericard Color Pericard Appearance Pericard WBC Pericard RBC Pericard Total Protein Nasal Screen MRSA (PCR) 09/28/19 09/28/19 09/28/19 13:50 Unknown Unknown WBC RBC Hgb Hct MCV MCH MCHC RDW Std Deviation RDW Coeff of [place] Plt Count MPV PT INR Sodium Potassium Chloride Carbon Dioxide Anion Gap BUN Creatinine Est Cr Clr Drug Dosing Est GFR ( Amer) Est GFR (Non-Af Amer) BUN/Creatinine Ratio Glucose Calcium Fluid Neutrophils % Pending Fluid Lymphocytes % Pending Fluid Eosinophils % Pending Fluid Meso/Macro/[place] % Pending Pericard Color Pending Pericard Appearance Pending Pericard WBC Pending Pericard RBC Pending Pericard Total Protein Pending Nasal Screen MRSA (PCR) Pending Medications Administered Acetaminophen (Tylenol) 650 mg PO Q4H PRN PRN Reason: Pain or Fever Stop: 10/27/19 04:27 Last Admin: 09/28/19 13:28 Dose: 650 mg Documented by: [id number] Aspirin (Ecotrin Ectab) 162 mg PO QDL [facility] Stop: 10/27/19 11:29 Last Admin: 09/28/19 13:55 Dose: Not Given Documented by: [id number] Admin: 09/27/19 11:43 Dose: 162 mg Documented by: [id number] Colchicine (Colcrys) 0.6 mg PO QAM [facility] Stop: 10/27/19 08:59 Last Admin: 09/28/19 08:17 Dose: 0.6 mg Documented by: [id number] Admin: 09/27/19 08:01 Dose: 0.6 mg Documented by: [id number] Sodium Chloride (Nss 1000ml) 1,000 mls @ 80 mls/hr IV .[id number] [facility] Stop: 10/28/19 09:29 Last Admin: 09/28/19 10:06 Dose: 80 mls/hr Documented by: [id number] Metoprolol Tartrate (Lopressor) 50 mg PO AMHS [facility] Stop: 10/27/19 08:59 Last Admin: 09/28/19 08:17 Dose: 50 mg Documented by: [id number] Admin: 09/27/19 21:17 Dose: 50 mg Documented by: [id number] Admin: 09/27/19 08:01 Dose: 50 mg Documented by: [id number] Miscellaneous (Order Awaiting Action) 1 ea N/A QS [facility] Stop: 10/27/19 07:59 Last Admin: 09/28/19 08:16 Dose: Not Given Documented by: [id number] Admin: 09/27/19 23:47 Dose: Not Given Documented by: [id number] Admin: 09/27/19 19:39 Dose: Not Given Documented by: [id number] Admin: 09/27/19 19:33 Dose: Not Given Documented by: [id number] PG Care Time/CCT Total # of Minutes Spent Total Time Spent with Patient: Total time spent is greater than 50% in coordination of care (as documented) at patient's floor/unit and/or counseling patient: Resident Activity Tracking Resident Involvement: Resident Care Provided Care Provided: Adult Hospital Medicine (ICU)
[2019-09-28 16:07] LABS: Basophils, Fluid 1 %; Eosinophils, Fluid 11 %; Lymphocytes, Fluid 6 %; Mono,Macrophage,Mesothelial 4 %; Neutrophils, Fluid 78 %; Pericardial Fluid Appearance BLOODY; Pericardial Fluid Color RED; RBC Pericardial Fluid (A) 3223000 /uL; WBC Pericardial Fluid (A) 2898 /uL
--- NOTE | 2019-09-28 19:24 | Hospitalist Progress Note ---
Date of Service September 28, 2019 Assessment & Plan (1) Pericardial effusion: Present on admission with palpitation and fever CXR on admission showed cardiomegaly without radiographic evidence of congestive failure. Small left pleural effusion. ECHO showed large pericardial effusion cardio on board S/P successful pericardiocentesis of 350ml of blood fluid performed by Dr. Hilton today Pericardial drain to gravity Repeat ECHO post pericardiocentesis done today showed small residual posterior pericardial effusion Pericardial fluid sent to lab for cell count, cultures Abx discontinued Continue colchicine for 3 to 6 months therapy cardio will reassess tomorrow, If no significant reaccumulation plan to pull drain Check CBC in am Transfer to ICU for close monitor S/P aortic valve repair Stable on echo Sinus tachycardia Due to pericarditis Continue metoprolol HR improves DVT px on SCDs Disposition Continue monitor In ICU Subjective Pt was seen and examined Lying in bed with no distress Denies any chest pain, palpitation, dizziness and SOB Physical Exam Physical Exam: General- No acute distress Head- atraumatic Eyes- PERRL, EOMI, ENT- oropharynx clear Neck- supple, no JVD Lungs- clear to auscultation Heart- regular rhythm; no murmur, pericardial drain present Abdomen- normal bowel sounds, soft, nontender Extremities- no calf tenderness Neuro- alert, oriented x 3; PERRL, EOMI; no facial palsy; no dysarthria Skin- warm & dry Results & Data Vital Signs (Past 12 Hours) Vital Signs Temp Pulse Pulse Resp BP BP Pulse Ox 09/28/19 19:00 75 16 123/68 98 09/28/19 18:30 63 18 96 09/28/19 18:01 70 24 96 09/28/19 18:00 73 18 109/62 96 09/28/19 17:30 99 H 24 96 09/28/19 17:01 58 L 19 96 09/28/19 17:00 73 16 111/59 L 98 09/28/19 16:45 74 21 120/65 98 09/28/19 16:31 58 L 15 97 09/28/19 16:30 59 L 17 113/62 96 09/28/19 16:15 77 24 115/66 97 09/28/19 16:01 57 L 17 96 09/28/19 16:00 36.9 C 56 L 58 L 16 99/54 L 113/62 96 09/28/19 15:45 58 L 15 112/58 L 96 09/28/19 15:31 57 L 15 97 09/28/19 15:30 69 18 124/69 97 09/28/19 15:15 60 15 103/57 L 97 09/28/19 15:01 59 L 15 96 09/28/19 15:00 61 17 118/72 96 09/28/19 14:45 57 L 19 112/64 97 09/28/19 14:36 73 25 H 118/71 99 09/28/19 14:31 76 13 100 09/28/19 14:30 81 20 118/71 99 09/28/19 14:15 72 19 120/76 97 09/28/19 14:01 75 18 135/81 97 09/28/19 14:00 76 19 98 09/28/19 13:25 71 18 130/84 98 09/28/19 13:10 73 18 131/83 99 09/28/19 13:00 36.6 C 70 78 18 127/76 96 09/28/19 08:00 57 L
[2019-09-28] MEDS: fentaNYL citrate 100 MCG/2 ML VIAL IV PRN ×2 (20:27→23:56)
[2019-09-29] MEDS: SODIUM CHLORIDE 0.9% 1000ML 1,000 ML IV SCH (03:03)
[2019-09-29] MEDS: fentaNYL citrate 100 MCG/2 ML VIAL IV PRN (03:08)
[2019-09-29 04:24] LABS: Hematocrit (blood only) 32.9 % (42-52); Mean Corpuscular Hemoglobin 30.1 pg (25-34); Mean Corpuscular Hgb Conc 33.4 g/dL (32-36); Mean Corpuscular Volume 90.1 fL (80-100); Mean Platelet Volume 9.4 fL (7.4-10.4); Platelet Count 257 K/uL (130-400); RDW Coefficient of Variation 12.2 % (11.5-14.5); RDW Standard Deviation 40.6 fL (36.4-46.3); Red Blood Count 3.65 M/uL (4.7-6.1)
[2019-09-29 04:41] LABS: Calcium 8.6 mg/dl (8.5-10.1); Creatinine Clr Calc Pharmacy 100.2 ml/min; Est GFR (African American) 108.3; Est GFR (Non-African American) 93.4; Phosphorus 3.7 mg/dl (2.5-4.9); Potassium 3.8 mmol/L (3.5-5.1)
--- NOTE | 2019-09-29 06:30 | Critical Care Progress Note ---
Date of Service September 29, 2019 Assessment & Plan (1) Pericardial effusion: Reason Critically Ill: Mr. Andrew Arnold is a 23 y/o male with history of asthma and bicuspid aortic valve status post aortic valve repair performed at [facility] on 08/17/2019 who was brought to ICU for hemodynamic monitoring and critical care management s/p pericardiocentesis with pericardial drain for pericardial effusion. Neuro: alert and oriented x 3 Cardiac/Vascular Hx of bicuspid aortic valve s/p repair on 08/17/[address] [facility]. Post-op care for Pericardiocentesis with Pericardial drain for Pericardial effusion. Fluid pending lab analysis. Noted for 350mL bloody drainage total with nursing reporting decreasing output overnight. Hemodynamically stable - continue cardiac/hemodynamic monitoring c/w ASA 162mg c/w Colchicine 0.6mg qAM c/w Lopressor 50mg qAMHS Nitro SL for chest pain PRN Pulm Hx of asthma Oxygenating well on room air Albuterol inhaler PRN GI: Heart healthy diet Renal/Lytes No electrolyte abnormalities noted Gentle hydration with IVF NSS 80mLs/hr : No current grubbs Endo: No hx of diabetes or thyroid disorder Heme: WBC WNL, platelets WNL Hgb at 11.1, stable, will trend, noted pericardial bloody fluid drained, no other signs of bleeding. ID: Prior on Vanc and Rocephin which was discontinued. 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 Blood cultures drawn 09/26 NGTD Cultures pending from pericardial fluid obtained from procedure today Lines: peripheral IVs Pericardial drain DVT ppx: Rx not appropriate as pericardial fluid was bloody in appearance and concerns for reaccumulation if given anti-coagulation Resuscitation status: Full Code (2) S/P aortic valve repair: (3) Sinus tachycardia: (4) Bicuspid aortic valve determined by imaging: Supervising Physician Co-Signing Physician Notes Dr. Montaño was resident physician during care of patient. I separately evaluated patient for cardoso portions of the history and the exam. I was present during the critical portion of medical decision making, and I discussed the case with the resident. I generally agree with the findings and plan. Patient asymptomatic pending echo today anticipate continued pericardial drain and ICU status post pericardial drain is in place. Subjective Mr. Arnold reports chest pain secondary to drainage site that is improved with analgesics. No reports of shortness of breath, nausea, diaphoresis, dizziness. No acute events overnight. Review of Systems Review of Systems: All systems reviewed & are unremarkable except as noted in HPI & below Physical Exam Constitutional: WD/WN, vitals as above cooperative and comfortable Eyes: PERRL and EOM intact bilaterally ENMT: external ear and nose normal, oropharynx normal Neck: normal visual inspection and trachea midline Respiratory: normal respiratory effort, lungs clear to auscultation Cardiovascular: Rate/Rhythm: regular rate and regular rhythm Extremities: no pedal edema Chest (Breasts): Additional Comments: pericardial drain in place with return of bloody drainage Gastrointestinal (Abdomen): Percussion/Palpation: abdomen soft; abdomen nontender and no guarding Musculoskeletal: Head/Neck/Chest: normocephalic and head atraumatic Skin: no rashes, warm and dry Neurologic: moves all extremities and awake Psychiatric: A+Ox3, euthymic affect Results & Data Vital Signs (Past 12 Hours) Vital Signs Temp Pulse Resp BP Pulse Ox 09/29/19 06:00 60 16 113/68 97 09/29/19 05:00 69 12 133/82 98 09/29/19 04:00 36.3 C L 58 L 20 111/67 97 09/29/19 03:00 59 L 18 113/72 97 09/29/19 02:00 65 21 118/71 96 09/29/19 01:00 65 16 112/66 98 09/29/19 00:00 36.4 C L 58 L 12 116/61 95 09/28/19 23:00 67 20 127/69 97 09/28/19 22:00 60 17 105/57 L 96 09/28/19 21:00 74 21 120/68 96 09/28/19 20:00 36.8 C 83 36 H 132/82 98 09/28/19 19:00 75 16 123/68 98 09/28/19 18:30 63 18 96 PG Care Time/CCT Total # of Minutes Spent Total Time Spent with Patient: Total time spent is greater than 50% in coordination of care (as documented) at patient's floor/unit and/or counseling patient: Resident Activity Tracking Resident Involvement: Resident Care Provided Care Provided: Adult Hospital Medicine (ICU)
[2019-09-29] MEDS: METOPROLOL TARTRATE 50 MG TAB PO SCH ×2 (07:55→20:29)
[2019-09-29] MEDS: COLCHICINE 0.6 MG TAB PO SCH (07:55)
[2019-09-29] MEDS ORDERED: KETOROLAC 30 MG/ML VIAL IV PRN (09:46)
--- NOTE | 2019-09-29 10:16 | Cardiology Progress Note ---
Date of Service September 29, 2019 Assessment & Plan (1) Pericardial effusion: Pericardial effusion/post pericardiotomy syndrome Successful pericardiocentesis yesterday with drainage diminishing Anticipate removal pericardial catheter today Toradol administered for pain today Discussion we will avoid further glucocorticoids We will continue colchicine Add ibuprofen 600 3 times daily with GI prophylaxis Supplement potassium to greater than 4 to avoid atrial arrhythmia complication Repeat echocardiogram in a.m. (2) S/P aortic valve repair: Echocardiogram reviewed and excellent post surgical result noted (3) Sinus tachycardia: Secondary to presenting complaints Heart rates better today, IV fluids begun (4) Bicuspid aortic valve determined by imaging: Subjective Patient seen and examined, chart, medications, telemetry reviewed. Patient has pain at pericardiocentesis site, pleuritic discomfort. Denies fevers chills or sweats. Pericardial drainage is now diminishing Physical Exam Constitutional: WD/WN, vitals as above + thin Eyes: PERRL, conjunctivae normal, anicteric sclerae ENMT: external ear and nose normal, oropharynx normal Neck: trachea midline, no thyromegaly Respiratory: normal respiratory effort, lungs clear to auscultation Cardiovascular: Rate/Rhythm: regular rate and regular rhythm Heart Sounds: normal S1, normal S2, + murmur (Grade 1/6 systolic no diastolic murmur) and + cardiac rub; no gallop Palpation: normal PMI Vessels: normal carotid upstroke and radial pulses present; no JVD and no carotid bruit Extremities: no edema Chest (Breasts): Additional Comments: Pericardiocentesis site without drainage or erythema Gastrointestinal (Abdomen): normal bowel sounds, soft, nontender, no hepatosplenomegaly Musculoskeletal: no cyanosis or clubbing, extremities motor strength 5/5 Skin: no rashes, warm and dry Neurologic: PERRL, EOMI, accommodation nl, no face palsy, no dysarthria Psychiatric: A+Ox3, euthymic affect Results & Data Vital Signs (Past 12 Hours) Vital Signs Temp Pulse Resp BP Pulse Ox 09/29/19 08:01 36.7 C 90 20 97 09/29/19 08:00 88 19 122/78 97 09/29/19 07:01 72 25 H 97 09/29/19 06:00 60 16 113/68 97 09/29/19 05:00 69 12 133/82 98 09/29/19 04:00 36.3 C L 58 L 20 111/67 97 09/29/19 03:00 59 L 18 113/72 97 09/29/19 02:00 65 21 118/71 96 09/29/19 01:00 65 16 112/66 98 09/29/19 00:00 36.4 C L 58 L 12 116/61 95 09/28/19 23:00 67 20 127/69 97 Laboratory Results Laboratory Results - last 24 hr 09/28/19 09/28/19 09/28/19 13:50 16:14 Unknown WBC RBC Hgb Hct MCV MCH MCHC RDW Std Deviation RDW Coeff of [place] Plt Count MPV Sodium Potassium Chloride Carbon Dioxide Anion Gap BUN Creatinine Est Cr Clr Drug Dosing Est GFR ( Amer) Est GFR (Non-Af Amer) BUN/Creatinine Ratio Glucose POC Glucose 108 H Calcium Phosphorus Magnesium Fluid Neutrophils % Fluid Lymphocytes % Fluid Eosinophils % Fluid Basophils % Fluid Meso/Macro/[place] % Pericard Color Pericard Appearance Pericard WBC Pericard RBC Pericard Total Protein Pending Nasal Screen MRSA (PCR) Negative 09/28/19 09/29/19 09/29/19 Unknown 04:08 04:08 WBC 6.80 RBC 3.65 L Hgb 11.0 L Hct 32.9 L MCV 90.1 MCH 30.1 MCHC 33.4 RDW Std Deviation 40.6 RDW Coeff of [place] 12.2 Plt Count 257 MPV 9.4 Sodium 142 Potassium 3.8 Chloride 108 H Carbon Dioxide 30 Anion Gap 4.0 BUN 17 D Creatinine 1.12 D Est Cr Clr Drug Dosing 100.2 Est GFR ( Amer) 108.3 Est GFR (Non-Af Amer) 93.4 BUN/Creatinine Ratio 15.0 Glucose 92 POC Glucose Calcium 8.6 Phosphorus 3.7 Magnesium 2.0 Fluid Neutrophils % 78 Fluid Lymphocytes % 6 Fluid Eosinophils % 11 Fluid Basophils % 1 Fluid Meso/Macro/[place] % 4 Pericard Color RED Pericard Appearance BLOODY Pericard WBC 2898 Pericard RBC [id number] Pericard Total Protein Nasal Screen MRSA (PCR) Diagnostic Findings 29-SEP-2019 06:42:30 [facility]-CCU ROUTINE RETRIEVAL Normal sinus rhythm Normal ECG When compared with ECG of 28-SEP-2019 07:02, No significant change was found
[2019-09-29] MEDS ORDERED: POTASSIUM CHLORIDE 20 MEQ TABCR PO ONE ×2 (10:36→18:23)
[2019-09-29] MEDS: IBUPROFEN 600 MG TAB PO SCH ×2 (11:28→16:52)
[2019-09-29] MEDS: ASPIRIN 81 MG ECTAB PO SCH (11:28)
[2019-09-29] MEDS: PANTOprazole 40 MG TAB PO SCH (11:28)
[2019-09-29 15:55] LABS: RMSF IgG Ab Not Detected (Not Detected); RMSF IgM Ab Not Detected (Not Detected)
--- NOTE | 2019-09-29 16:03 | Hospitalist Progress Note ---
Date of Service September 29, 2019 Assessment & Plan (1) Pericardial effusion: Present on admission with palpitation and fever CXR on admission showed cardiomegaly without radiographic evidence of congestive failure. Small left pleural effusion. ECHO showed large pericardial effusion cardio on board S/P day 1 successful pericardiocentesis of 350ml of blood fluid performed by Dr. Hilton today Pericardial drain removed today Repeat ECHO today post pericardiocentesis day 1 showed showed small residual posterior pericardial effusion Pericardial fluid no growth Abx discontinued Continue colchicine for 3 to 6 months therapy Ibuprofen 600 3 times daily with GI prophylaxis adding Will keep K above 4 Clinically stable Will transfer to tele S/P aortic valve repair Stable on echo Sinus tachycardia Due to pericarditis Continue metoprolol HR improves DVT px on SCDs Disposition Transfer to Tele Will discharge once stable from cardiac standpoint Subjective Pt was seen and examined Lying in bed with no distress with mother at bedside Pt said that he feels fine Denies any chest pain, palpitation and SOB Physical Exam Physical Exam: General- No acute distress Head- atraumatic Eyes- PERRL, EOMI, ENT- oropharynx clear Neck- supple, no JVD Lungs- clear to auscultation Heart- regular rhythm; no murmur, pericardial drain removed Abdomen- normal bowel sounds, soft, nontender Extremities- no calf tenderness Neuro- alert, oriented x 3; PERRL, EOMI; no facial palsy; no dysarthria Skin- warm & dry Results & Data Vital Signs (Past 12 Hours) Vital Signs Temp Pulse Resp BP Pulse Ox 09/29/19 13:01 74 18 96 09/29/19 13:00 69 25 H 119/77 96 09/29/19 12:01 68 21 96 09/29/19 12:00 36.5 C 70 22 117/79 96 09/29/19 11:01 66 12 97 09/29/19 11:00 64 8 L 111/71 96 09/29/19 10:01 63 13 96 09/29/19 10:00 63 15 109/71 96 09/29/19 09:01 68 19 96 09/29/19 09:00 76 25 H 117/74 97 09/29/19 08:01 36.7 C 90 20 97 09/29/19 08:00 88 19 122/78 97 09/29/19 07:01 72 25 H 97 11/06/19 06:00 60 16 113/68 97 09/29/19 05:00 69 12 133/82 98 09/29/19 04:00 36.3 C L 58 L 20 111/67 97
[2019-09-29] MEDS: FLUTICASONE HFA 110MCG INHALER INH SCH (20:29)
[2019-09-30] MEDS: IBUPROFEN 600 MG TAB PO SCH ×2 (08:27→11:36)
[2019-09-30] MEDS: COLCHICINE 0.6 MG TAB PO SCH (08:29)
[2019-09-30] MEDS: FLUTICASONE HFA 110MCG INHALER INH SCH (08:29)
[2019-09-30] MEDS: PANTOprazole 40 MG TAB PO SCH (08:30)
[2019-09-30] MEDS: METOPROLOL TARTRATE 50 MG TAB PO SCH (08:32)
--- NOTE | 2019-09-30 09:36 | Cardiology Progress Note ---
Date of Service September 30, 2019 Assessment & Plan (1) Pericardial effusion: Pericardial effusion/post pericardiotomy syndrome Successful pericardiocentesis with good clinical result, cultures negative Pericardiocentesis catheter removed yesterday We will continue colchicine Continue ibuprofen 600 3 times daily with meals and with GI prophylaxis, Protonix Continue metoprolol Plan: Patient may be discharged with goals for repeat echocardiogram Facundo Cortes next week Follow-up cardiology 2 weeks (2) S/P aortic valve repair: Echocardiogram reviewed and excellent post surgical result noted (3) Sinus tachycardia: Resolved (4) Bicuspid aortic valve determined by imaging: Subjective Patient seen and examined, chart, medications, telemetry reviewed. Patient notes occasional brief jabs and pleuritic discomfort but much more comfortable today. No dizziness lightness syncope near syncope. No orthopnea or peripheral edema. Pericardiocentesis site is healing without drainage Review of Systems Review of Systems: All systems reviewed & are unremarkable except as noted in HPI & below Physical Exam Constitutional: WD/WN, vitals as above + thin Eyes: PERRL, conjunctivae normal, anicteric sclerae ENMT: external ear and nose normal, oropharynx normal Neck: trachea midline, no thyromegaly Respiratory: normal respiratory effort, lungs clear to auscultation Cardiovascular: Rate/Rhythm: regular rate and regular rhythm Heart Sounds: normal S1, normal S2, + murmur (Grade 1/6 systolic no diastolic murmur) and + cardiac rub; no gallop Palpation: normal PMI Vessels: normal carotid upstroke and radial pulses present; no JVD and no carotid bruit Extremities: no edema Gastrointestinal (Abdomen): normal bowel sounds, soft, nontender, no hepatosplenomegaly Musculoskeletal: no cyanosis or clubbing, extremities motor strength 5/5 Skin: no rashes, warm and dry Neurologic: PERRL, EOMI, accommodation nl, no face palsy, no dysarthria Psychiatric: A+Ox3, euthymic affect Results & Data Vital Signs (Past 12 Hours) Vital Signs Temp Pulse Resp BP BP Pulse Ox 09/30/19 08:32 78 09/30/19 07:10 36.4 C L 58 L 18 118/75 98 09/30/19 03:43 36.2 C L 58 L 18 115/73 98 09/29/19 23:09 36.7 C 66 20 124/81 97 Laboratory Results Laboratory Results - last 24 hr 09/26/19 21:35 A. phagocytophilum DNA Cancelled Rickettsia IgG Ab Not Detected Rickettsia IgM Ab Not Detected
[2019-09-30] MEDS: ASPIRIN 81 MG ECTAB PO SCH (11:35)
--- NOTE | 2019-09-30 12:04 | Hospitalist Progress Note ---
Date of Service September 30, 2019 Assessment & Plan (1) Pericardial effusion: Present on admission with palpitation and fever CXR on admission showed cardiomegaly without radiographic evidence of congestive failure. Small left pleural effusion. ECHO showed large pericardial effusion cardio on board S/P day 1 successful pericardiocentesis of 350ml of blood fluid performed by Dr. Hilton today Pericardial drain removed today Repeat ECHO today post pericardiocentesis day 1 showed showed small residual posterior pericardial effusion Pericardial fluid no growth Abx discontinued Continue colchicine for 3 to 6 months therapy Continue Ibuprofen 600x 3 times daily with GI prophylaxis Continue metoprolol Follow up with cardiology next week for repeat ECHO Follow-up with cardiology in 2 weeks OK from cardiology standpoint to discharge home S/P aortic valve repair Stable on echo Sinus tachycardia Due to pericarditis Continue metoprolol HR improves DVT px on SCDs Disposition Discharge home today Follow up with your primary care provider Dr. Tse on 10/05 @ 10:55 AM Follow up with Cardiology Dr. Sosa on 10/14/19 @ 9AM Schedule for repeat echo on 10/07/19 @ 11:00 AM Subjective Pt was seen an examined Lying in bed with no distress with mother at bedside Pt said that he feels fine Denies any chest pain, palpitation and SOB Physical Exam Physical Exam: General- No acute distress Head- atraumatic Eyes- PERRL, EOMI, ENT- oropharynx clear Neck- supple, no JVD Lungs- clear to auscultation Heart- regular rhythm; no murmur, pericardial drain removed Abdomen- normal bowel sounds, soft, nontender Extremities- no calf tenderness Neuro- alert, oriented x 3; PERRL, EOMI; no facial palsy; no dysarthria Skin- warm & dry Results & Data Vital Signs (Past 12 Hours) Vital Signs Temp Pulse Pulse Resp BP BP Pulse Ox 09/30/19 11:12 36.9 C 58 L 18 120/79 99 09/30/19 08:32 78 09/30/19 08:00 52 L 09/30/19 07:10 36.4 C L 58 L 18 118/75 98 09/30/19 03:43 36.2 C L 58 L 18 115/73 98
[2019-09-30 15:30] LABS: Ehrlichia chaff DNA Bld Not Detected (Not Detected)
--- NOTE | 2019-10-01 08:45 | Discharge Summary ---
Date of Service September 30, 2019 Admission HPI Per Admitting Provider CHIEF COMPLAINT: Palpitations. HISTORY OF PRESENT ILLNESS: This is a 23-year-old male with past medical history significant for mild persistent asthma without complication, allergic rhinitis, history of bicuspid aortic valve status post aortic valve repair done at [facility] on 08/17/2019. Post-surgery, he developed pneumothorax and improved on followup chest x-ray, he had some pericarditis, was sent home on colchicine, which he stopped about 10 days ago. He also followed with CT surgery at [place] and supposed to follow with cardiology coming Friday and he says he is doing okay, but since last , he developed palpitations. He noted mostly at rest, on ambulation he was okay. Denies any chest pain or shortness of breath or cough. No nausea, no vomiting. At home, he had a low-grade temperature and today the temperature went up to 100.3, when he came to the hospital. Here before coming, he took ibuprofen. In ER he is afebrile, but his heart rate was ranging from when he came in 120s-140s, currently in the less than 100. Blood pressures are okay. White count is 11,000. Rest of the labs are okay. Influenza negative. 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 He states if he stays in one side for a long time, he had some back pain and clavicle pain, but it goes away as he ambulates. Denies any headache, no dizziness, no blurred vision, no earache, no runny nose, no sore throat, no difficulty swallowing. Appetite is okay, sleeping okay. No nausea, no vomiting, no abdominal pain. Normal bowel and bladder movements. No hematuria or burning micturition, no blood in the stools. No swelling in the legs, no rash. Currently resting comfortably and hemodynamically stable. Admission Exam Per Admitting Provider GENERAL: The patient is of moderate built, not in acute distress. VITAL SIGNS: Temperature 36.4, pulse 94, respiratory rate 16, blood pressure 105/60, oxygen 94% room air. HEENT: No pallor, no icterus. Pupils equal, round, reactive to light. NECK: No JVD, no neck masses, no carotid bruits. CARDIOVASCULAR: S1, S2 heard, regular rate and rhythm, no murmur appreciated. Surgical scar healing well, no erythema or drainage seen.. RESPIRATORY SYSTEM: Normal AP diameter. No thyromegaly. No wheezing, no crac kles. ABDOMEN: Soft, bowel sounds present, nontender. No distention. CENTRAL NERVOUS SYSTEM: Cranial nerves II-XII grossly nonfocal. EXTREMITIES: No edema most extremities. Principal Diagnosis Pericardial effusion S/P aortic valve repair Sinus tachycardia Discharge Exam General- No acute distress Head- atraumatic Eyes- PERRL, EOMI, ENT- oropharynx clear Neck- supple, no JVD Lungs- clear to auscultation Heart- regular rhythm; no murmur, pericardial drain removed Abdomen- normal bowel sounds, soft, nontender Extremities- no calf tenderness Neuro- alert, oriented x 3; PERRL, EOMI; no facial palsy; no dysarthria Skin- warm & dry Discharge Data Allergies Allergy/AdvReac Type Severity Reaction Status Date / Time animal dander Allergy Intermediate ITCHY Verified 09/26/19 22:40 EYES, SNEEZING, CAN TRIGGER ASTHMA ATTACK. Consultations 09/27/19 01:24 ED Decision to Admit Stat 09/27/19 08:00 Consult Cardiology Routine 09/28/19 09:36 Consult Cardiology Routine 09/28/19 14:48 Consult Water Operator Routine Procedures Performed Operation Date: 09/28/19 11:00 Actual Procedures p Pericardiocentesis Initial - Adonis Hilton MD Ordered Studies 09/27/19 01:16 US point of care ultrasound Stat 09/28/19 11:35 CL Cath Imgs for PACS use only Routine SINGLE VIEW CHEST CLINICAL HISTORY: Atypical chest pain. FINDINGS: An AP, portable, upright chest radiograph is obtained. No prior studies are available for comparison at the time of dictation. The patient is status post midline sternotomy. The heart is enlarged. The pulmonary vasculature is noncongested. A small left pleural effusion is identified with associated left basilar atelectasis. The right lung appears clear. No pneumothorax is seen. The bony thorax is grossly intact. IMPRESSION: 1. Cardiomegaly without radiographic evidence of congestive failure. 2. Small left pleural effusion. Electronically signed by: Wing Salter M.D. 09/26/2019 10:50 PM Dictated: 09/26/192248 Transcribed: 09/26/192248 Hospital Course (1) Pericardial effusion: Present on admission with palpitation and fever CXR on admission showed cardiomegaly without radiographic evidence of congestive failure. Small left pleural effusion. ECHO showed large pericardial effusion cardio on board S/P day 1 successful pericardiocentesis of 350ml of blood fluid performed by Dr. Hilton today Pericardial drain removed today Repeat ECHO today post pericardiocentesis day 1 showed showed small residual posterior pericardial effusion Pericardial fluid no growth Abx discontinued Continue colchicine for 3 to 6 months therapy Continue Ibuprofen 600x 3 times daily with GI prophylaxis Continue metoprolol Follow up with cardiology next week for repeat ECHO Follow-up with cardiology in 2 weeks OK from cardiology standpoint to discharge home S/P aortic valve repair Stable on echo Sinus tachycardia Due to pericarditis Continue metoprolol HR improves DVT px on SCDs Disposition Discharge home today Follow up with your primary care provider Dr. Tse on 10/05 @ 10:55 AM Follow up with Cardiology Dr. Sosa on 10/14/19 @ 9AM Schedule for repeat echo on 10/07/19 @ 11:00 AM Total Time Total Time Spent Total Time Spent (In Minutes): 35 minutes Total Time Includes: Examination of the Patient, Discharge Planning, Medication Reconciliation, Communication With Other Providers and Other Discharge Plan Discharge Items Patient Disposition: Home - Self-Care Reason For Visit: PALPITATIONS Discharge Diagnosis: Pericardial effusion S/P aortic valve repair Sinus tachycardia Activity: Resume your previous activity Activity Comment: as tolerated Non-emergency contact: Primary Care Provider and Sales Property Manager Call non-emergency contact if: you have any medication questions, your temperature is above 101, your wound has increased redness and your wound has increased drainage Follow-up/Referrals: Aditya Tse, [Primary Care Provider] - Diet: Heart Healthy Addtl Attending Provider Instructions: Follow up with your primary care provider Dr. Tse on 10/05 @ 10:55 AM Follow up with Cardiology Dr. Sosa on 10/14/19 @ 9AM Schedule for repeat echo on 10/07/19 @ 11:00 AM Ibuprofen 600mg x3 times daily, please continue until seeing cardiology Pending Studies at Discharge: No Stand-Alone Forms: My [facility], Smoking Cessation Medications and DC Order Prescriptions: New pantoprazole 40 mg Tablet,Delayed Release (Dr/Ec) 40 mg PO QAM Qty: 30 RF: 0 colchicine [Colcrys] 0.6 mg Tablet 0.6 mg PO QAM Qty: 30 RF: 0 ibuprofen 600 mg tablet 600 mg PO TID Qty: 60 RF: 0 Continued aspirin [Aspir-81] 81 mg Tablet,Delayed Release (Dr/Ec) 162 mg PO QDL RF: 0 metoprolol tartrate 50 mg Tablet 50 mg PO AMHS RF: 0 albuterol sulfate 90 mcg/actuation Hfa Aerosol Inhaler 2 puff INHALATION Q6H PRN (Reason: Shortness Of Breath Or Wheezing) RF: 0 Arnuity Ellipta 200 mcg/actuation Blister With Device 1 inh INHALATION DAILY RF: 0 fexofenadine 180 mg 180 mg PO DAILY RF: 0 Discharge Orders: Discharge Order (Routine); Ordered 09/30/19 Ordered By: Shahida Us Admission Data Admit Date/Time: 09/27/19 03:46 Attending Provider: Shahida Us Admit Provider: Elliott Floyd Primary Care Provider: Aditya Tse Other Providers: Kendal Real I. ; Elliott Floyd ; Damian Medrano ; Adonis Hilton ; Ryan Sánchez Other Interventions: Discharge Summary Assessment (RN) Last Done: 09/30/19 13:26 DC Date/Time DO NOT enter until pt leaves facility: 09/30/19 13:45
== END 2019-09-30 13:45 | disposition home or self-care (01) | DRG 316 ==
LOC: ED 21:13 → SUATTDRO 09-27 03:46 → 2S 09-27 03:46 → 1E 09-28 13:41 → 2S 09-29 18:16

== ENCOUNTER 2019-10-26 06:23 | Inpatient (IN) ==
[2019-10-26] MEDS ORDERED: SODIUM CHLORIDE 0.9% 1000ML 1,000 ML IV STA (06:47)
[2019-10-26] MEDS ORDERED: ONDANSETRON INJ 2 MG/ML 2 ML VIAL IV STA (06:47)
[2019-10-26] MEDS ORDERED: HYDROmorphone INJ 0.5 MG/0.5 ML SYR IV PRN (06:47)
[2019-10-26 06:50] LABS: Basophils # (auto) 0.03 K/uL (0-0.2); Basophils % (auto) 0.3 %; Eosinophils # (auto) 0.07 K/uL (0-0.5); Eosinophils % (auto) 0.7 %; Hematocrit (blood only) 42.4 % (42-52); Hemoglobin 14.4 g/dL (14.0-18.0); Immature Granulocytes # (auto) 0.02 K/uL (0.00-0.02); Immature Granulocytes % (auto) 0.2 %; Lymphocytes # (auto) 0.93 K/uL (1.2-3.4); Lymphocytes % (auto) 9.6 %; Mean Corpuscular Hemoglobin 30.3 pg (25-34); Mean Corpuscular Volume 89.1 fL (80-100); Mean Platelet Volume 10.4 fL (7.4-10.4); Monocytes # (auto) 1.49 K/uL (0.11-0.59); Monocytes % (auto) 15.5 %; Neutrophils % (auto) 73.7 %; Platelet Count 194 K/uL (130-400); RDW Coefficient of Variation 12.6 % (11.5-14.5); RDW Standard Deviation 40.7 fL (36.4-46.3); Red Blood Count 4.76 M/uL (4.7-6.1); White Blood Count 9.64 K/uL (4.8-10.8)
--- NOTE | 2019-10-26 07:07 | XRay Report ---
SINGLE VIEW CHEST CLINICAL HISTORY: Atypical chest pain. FINDINGS: An AP, portable, upright chest radiograph is compared to study dated 09/26/2019. The examina tion is degraded by portable technique and patient rotation. The patient is status post midline everett otomy. The heart is enlarged. The pulmonary vasculature is noncongested. There is a small left pleura l effusion with associated atelectasis. The lungs and pleural spaces are otherwise clear. No pneumoth orax is seen. The bony thorax is grossly intact. IMPRESSION: 1. Cardiomegaly with no acute cardiopulmonary abnormality. 2. A small left pleural effusion is unchanged from previous. Electronically signed by: Wing Salter M.D. 10/26/2019 7:05 AM
[2019-10-26 07:09] LABS: Alanine Aminotransferase 17 U/L (12-78); Albumin Level 4.1 gm/dl (3.4-5.0); Aspartate Aminotransferase 8 U/L (15-37); Blood Urea Nitrogen 15 mg/dl (7-18); Calcium 9.4 mg/dl (8.5-10.1); Carbon Dioxide 28 mmol/L (21-32); Chloride 103 mmol/L (98-107); Creatinine Clr Calc Pharmacy 101.3 ml/min; Est GFR (African American) 111.1; Est GFR (Non-African American) 95.8; Glucose 136 mg/dl (70-99); Lipase 91 U/L (73-393); Potassium 3.3 mmol/L (3.5-5.1); Sodium 137 mmol/L (136-145)
[2019-10-26 07:14] LABS: Albumin Globulin Ratio 1.1 (0.9-2); Alkaline Phosphatase 75 U/L (45-117); Bilirubin,Total 0.7 mg/dl (0.2-1); Globulin 3.9 gm/dl (2.5-4.0); Troponin I < 0.015 ng/ml (0-0.045)
[2019-10-26] MEDS ORDERED: OPTIRAY 320 125ml IV PRN (07:55)
--- NOTE | 2019-10-26 08:18 | CT Scan Report ---
CT ANGIOGRAM OF THE CHEST COMBO CLINICAL HISTORY: Atypical chest pain. COMPARISON STUDY: Chest x-ray dated 10/26/2019. TECHNIQUE: Before and following the IV administration of 117 cc of Optiray 320, CT angiogram of the c hest was performed from the thoracic inlet to the upper abdomen utilizing the dissection protocol. Im ages are reviewed in the axial, sagittal, and coronal planes. 3-D MIPS images are created and assesse d. IV contrast was administered without complication. A dose lowering technique was utilized adherin g to the principles of ALARA. CT DOSE: 449.64 mGy.cm FINDINGS: Thyroid: Imaged portions of the thyroid gland are normal in size and attenuation. Thoracic aorta: No intramural hematoma is seen on the unenhanced series. There is ectasia of the aort ic root which measures up to 4.0 cm in diameter. The thoracic aorta is otherwise normal in caliber an d demonstrates standard 3-vessel arch anatomy. No dissection is seen. The arch vessels are widely pat ent. Pulmonary vasculature: The pulmonary trunk is normal in caliber. There are no filling defects identif ied within the main, lobar, or proximal segmental pulmonary emboli to suggest pulmonary embolus. Heart: The patient is status post midline sternotomy. The heart is enlarged and there is a moderate p ericardial effusion. Mild pericardial thickening is noted. Lungs and pleural spaces: There are trace pleural effusions. There is no airspace consolidation typic al for pneumonia. The trachea and central airways are clear. Mediastinum: There is no mediastinal lymphadenopathy. Lyric: Clear. Axillae: There is no axillary lymphadenopathy. Upper abdomen: Partially visualized upper abdominal viscera is within normal limits. Skeletal structures: No lytic or blastic bony lesions are seen. IMPRESSION: 1. Cardiomegaly and moderate pericardial effusion. 2. Pericardial thickening is noted. Correlate clinically for evidence of pericarditis. 3. Trace pleural effusions. 4. There is ectasia of the aortic root which measures up to 4.0 cm. 5. The thoracic aorta is otherwise normal in caliber. No dissection is seen. 6. There is no airspace consolidation typical for pneumonia. 7. There is no evidence of pulmonary embolus in the main, lobar, or proximal segmental pulmonary griselda melly. Electronically signed by: Wing Salter M.D. 10/26/2019 8:17 AM
[2019-10-26] MEDS ORDERED: methylPREDNISolone 125 MG/2 ML VIAL IV STA (09:15)
--- NOTE | 2019-10-26 09:59 | Cardiology Consultation ---
Date of Consultation October 26, 2019 Assessment & Plan (1) Post pericardiotomy syndrome: (2) S/P aortic valve repair: At this time, the patient has had a relapse shortly after reducing the dose of ibuprofen from 600 mg 3 times per day to 400 mg 2 times per day. He remains on colchicine. He remained on Protonix 40 mg daily. I recommend at this time it is most prudent to proceed with corticosteroids for breakthrough pericarditis. His prior to hospital dose of colchicine 0.6 mg will be continued. I ordered 60 mg of IV Solu-Medrol to be administered in the emergency department. We will reassess his clinical response tomorrow and determine if ongoing IV corticosteroid is necessary versus transition to oral. Plan for a long slow tapering dose of oral corticosteroids, perhaps prednisone 30 mg daily, tapering down to 2.5 mg daily over a 6 to 8-week interval. Continue prior to arrival dose of metoprolol. Fortunately patient presented soon after recurrence of symptoms, and he has not had a significant enough fluid collection to warrant repeat pericardial drainage. We will proceed with trial of therapy as outlined above. Given the significance of his discomfort and his sinus tachycardia, recommend he stays in the hospital for reassessment tomorrow. History of Present Illness History of Present Illness Andrew Arnold is a 24 year old male seen in cardiology consultation in Emergency Department room B2 per the request of Dr Hinson for the evaluation of chest discomfort, sinus tachycardia, and pericardial effusion noted on CT of the chest. The patient is well-known to our cardiology service. His primary school patrol is Dr. Sosa of our practice. The patient's cardiac history dates back to May 2019. He had been evaluated for a remote episode of syncope, with subsequent findings of cardiac murmur and bicuspid aortic valve. Follow-up echocardiogram 06/15/2019 revealed normal LVEF of 55% with moderate left ventricular chamber dilatation, bicuspid aortic valve was present with severe eccentric aortic valve regurgitation and mild enlargement of the aortic root. There was no aortic valve stenosis. A cardiac CT was performed at the [facility] in July, revealing moderate rotation of the aortic root, 4.4 cm, the remainder of the thoracic aorta was reportedly normal in course, caliber, and contour with images that did not include the aortic arch. The patient subsequently underwent aortic valve repair on 08/17/2019 at the [facility] with excellent results with noted postoperative findings of minimal residual aortic valve regurgitation. His postoperative course was noted for pericarditis and transient pneumothorax and he was discharged on a course of colchicine. He however developed progressive chest discomfort prompting admission to [facility] and he was found to have a large circumferential pericardial effusion with most focal fluid collection adjacent to the left ventricular apex that did not respond to medical therapy and he ultimately underwent pericardiocentesis on 09/28/2019 at [facility] performed by Dr. Hilton. He was discharged on 09/30/2019 on colchicine 0.4 mg once a day, and ibuprofen 600 mg 3 times per day. A follow-up echocardiogram performed as an outpatient at [facility] on 10/07/19 revealed no residual pericardial fluid. At time of post hospital follow-up visit with Dr. Sosa on 10/14/2019 the patient was doing well. He had been instructed to reduce his ibuprofen to 400 mg twice a day. Colchicine 0.6 mg daily was continued. About a week after that appointment on 10/22/2019 he started experiencing right- sided chest discomfort that was worse with deep inspiration. This became progressive, and over the last few days has been associated with generalized feelings of malaise, yesterday he felt symptoms of feeling hot and cold as if he had a fever, similar to that which prompted his admission last month, and it progressed to a left-sided chest discomfort that is focal and it is localized to right over where his percutaneous pericardial drain had been placed just below his left nipple. On presentation today sinus tachycardia was noted on EKG and diagnostic cardiac sonographer with heart rate in the range of 116-120 bpm. Blood pressure 106/63, not particularly different from his typical baseline. CT angiogram of the chest was performed on arrival to the emergency room today with maximum aortic measurement of 4 cm at the level of the aortic root, consistent with his past measurements with no aortic dissection. A moderate pericardial effusion was noted per the radiology report of the CAT scan as well as concerns of pericardial thickening. The patient was assessed by the undersigned at the bedside and a transthoracic echocardiogram revealed a mild circumferential pericardial effusion with no evidence of tamponade. Cardiology Problem List: 1. Congenitally bicuspid aortic valve 2. Severe aortic insufficiency 3. Status post aortic valve repair August 17, 2019, [facility] with postoperative pericarditis transient pneumothorax 4. Hospitalization [facility] September 27, 2019 with large circumferential pericardial effusion and impending tamponade status post percutaneous drainage/pericardiocentesis Allergies Allergy/AdvReac Type Severity Reaction Status Date / Time animal dander Allergy Intermediate ITCHY Verified 10/26/19 06:49 EYES, SNEEZING, CAN TRIGGER ASTHMA ATTACK. Home Medications Home Medications Medication Instructions Recorded Confirmed Type aspirin [Aspir-81] 162 mg PO QDL 09/26/19 10/26/19 History metoprolol tartrate 50 mg PO AMHS 09/26/19 10/26/19 History Arnuity Ellipta 1 inh INHALATION DAILY 09/27/19 10/26/19 History albuterol sulfate 2 puff INHALATION Q6H PRN 09/27/19 10/26/19 History colchicine [Colcrys] 0.6 mg PO QAM #30 tab 09/30/19 10/26/19 Rx pantoprazole 40 mg PO QAM #30 tab 09/30/19 10/26/19 Rx fexofenadine [Mary Allergy] 180 mg PO DAILY 10/26/19 10/26/19 History ibuprofen 400 mg PO BID 10/26/19 10/26/19 History Patient History Medical History Bicuspid aortic valve determined by imaging (Chronic) Essential tremor (Chronic) Fever (Acute) Pericardial effusion (Acute) Sinus tachycardia (Acute) Surgical History S/P aortic valve repair (Acute) Family History Other No pertinent family history in first degree relatives Social History Preferred Language: Sami Communication Ability: Effective Production Hand Required: No Beliefs That Will Affect Care: None Current Living Situation: Parent Other Information That Helps Us Care for You: No Feels Safe at Home: Yes Safety Concerns: Feels Safe At This Time Smoking Status: Never smoker Do You Dip or Chew Tobacco: No ; Second Hand Exposure: No ; Tobacco Cessation Education Requested by Patient: No Hx Alcohol Use: No Hx Substance Use: No Review of Systems Review of Systems: All systems reviewed & are unremarkable except as noted in HPI & below Physical Exam Physical Exam: Temp Pulse Resp BP Pulse Ox 36.9 C 111 H 32 H 106/63 99 10/26/19 06:27 10/26/19 09:10 10/26/19 09:10 10/26/19 09:00 10/26/19 09:10 Constitutional: Ill in appearance, without acute distress. Respiratory: normal respiratory effort, lungs clear to auscultation Cardiovascular: Rate/Rhythm: + tachycardic Heart Sounds: no murmur and no cardiac rub Vessels: no JVD Chest (Breasts): Additional Comments: Well-healed midline sternotomy incision, well-healed chest tube incisions, stable sternum, well-healed left apical pericardiocentesis site Gastrointestinal (Abdomen): normal bowel sounds, soft, nontender, no hepatosplenomegaly Skin: no rashes, warm and dry Neurologic: PERRL, EOMI, accommodation nl, no face palsy, no dysarthria Results & Data Vital Signs (Past 12 Hours) Vital Signs Temp Pulse Pulse Resp BP BP Pulse Ox 10/26/19 09:10 111 H 32 H 99 10/26/19 09:01 110 H 27 H 99 10/26/19 09:00 112 H 31 H 106/63 99 10/26/19 08:50 107 H 29 H 99 10/26/19 08:40 104 H 20 97 10/26/19 08:31 103 H 20 98 10/26/19 08:30 116 H 26 H 107/69 98 10/26/19 08:20 105 H 22 98 10/26/19 08:10 106 H 24 99 10/26/19 08:02 107 H 25 H 99 10/26/19 08:01 122/80 10/26/19 07:40 102 H 22 97 10/26/19 07:31 102 H 22 96 10/26/19 07:30 101 H 23 105/66 96 10/26/19 07:20 103 H 23 96 10/26/19 07:10 92 H 25 H 97 10/26/19 07:00 111 H 25 H 105/61 97 10/26/19 06:50 115 H 24 98 10/26/19 06:41 116 H 32 H 99 10/26/19 06:37 115 H 115 H 24 123/83 98 10/26/19 06:36 117 H 28 H 123/83 99 10/26/19 06:27 36.9 C 122 H 20 112/73 99 Laboratory Results WBC normal at 9.64, hemoglobin 14.4, hematocrit 42.4, platelet count 194. Potassium 3.3 C-reactive protein elevated at 10.7 mg/dL, normal range 0 to 0.29 mg/dL Erythrocyte sedimentation rate 33 mm/h Diagnostic Findings EKG performed 10/26/2019 at 6:33 AM and reviewed independently by the u ariellaigned: Sinus tachycardia 116 bpm, diffuse T wave inversions noted in the inferior lateral leads consistent with possible left ventricular hypertrophy, compared to the prior tracing performed 09/29/2019, the ventricular rate has increased by 55 bpm, ST segment elevation is no longer evident in the inferior leads, but the T wave inversions are new. Echocardiogram, preliminary report, normal biventricular chamber size and systolic function. Bicuspid aortic valve with trace residual aortic valve regurgitation noted, no aortic valve stenosis. Mild aortic root dilatation. Small circumferential pericardial effusion, no tamponade physiology.
--- NOTE | 2019-10-26 10:26 | History & Physical Report ---
Date of Service October 26, 2019 Assessment & Plan (1) Post pericardiotomy syndrome: (2) S/P aortic valve repair: This is a 24yo M with a PMH of bicuspid aoritc valve s/p repair at [facility] in 08/12 and postoperative transient pneumothorax, pericarditis and pericardial effusion who is presenting today with chest pain and sinus tachycardia. -H/o of aortic valve repair in July 2019 with post-op complications including a large circumferential pericardial effusion s/p pericardiocentesis on September [address] Hilton -Has been taking colchicine 0.4 mg daily and ibuprofen 600 mg TID, later reduced to 400mg BID. Follow-up echocardiogram at [facility] on October 07 that revealed no residual pericardial fluid -Developed chest discomfort over the weekend and presents with left sided chest discomfort and sinus tachycardia -EKG today with sinus tachycardia of 116 bpm, diffuse T wave inversions noted in the inferior lateral leads consistent with possible LVH -Chest CTA revealed maximum aortic measurement of 4 cm at the level of the aortic root, consistent with his past measurements with no aortic dissection. A moderate pericardial effusion was noted as well as concerns of pericardial thickening -Evaluated by Dr. Snyder with bedside 2D echo, revealing small circumferential pericardial effusion but no tamponade physiology. Normal biventricular chamber size and systolic function, bicuspid aortic valve with trace residual aortic valve regurgitation noted, no aortic valve stenosis. Mild aortic root dilatation -Admitted to telemetry for further management. Given 60mg IV solu-medrol in ED. Further steroid management per Dr. Snyder -Will continue home dose colchicine, lopressor, protonix. Holding aspirin and ibuprofen (3) Mild persistent asthma: Family to bring Rosario Laws from home. Continue albuterol PRN DVT Ppx: Early ambulation, BRANDNE stockings Code status: FULL PCP: Yasmine Tse Dispo: Admitted to PCU. Plan to return home once medically stable. Patient seen in collaboration with Dr. Real. Please see addendum. History of Present Illness Chief Complaint: chest pain Primary Care Provider: Aditya Tse, This is a 24yo M with a PMH of bicuspid aoritc valve s/p repair at [facility] in 08/12 and postoperative transient pneumothorax, pericarditis and pericardial effusion who is presenting today with chest pain and sinus tachycardia. Patient's primary limnologist is Dr. Sosa of [facility] cardiology group. Following aortic valve repair in July 2019, patient was admitted to [facility] in early September with progressive chest discomfort and was found to have a large circumferential pericardial effusion and underwent pericardiocentesis on September [address] Hilton. Was discharged home on colchicine 0.4 mg daily and ibuprofen 600 mg TID. Had a follow-up echocardiogram at [facility] on October 07 that revealed no residual pericardial fluid. At this time, ibuprofen was reduced to 400 mg twice daily and colchicine was continued. Over the weekend, patient began to experience right-sided chest discomfort up to R clavicle primarily with deep inspiration. Pain has since migrated and localized below the left nipple. Endorses subjective fever and feelings of malaise starting yesterday. Pain had progressed as of 0 this morning so patient came to ED for further evaluation. Denies chills, lightheadedness, visual changes, palpitations, shortness of breath, nausea or vomiting. In ED, found to have sinus tachycardia at 115. Afebrile and normotensive. Chest CTA revealed maximum aortic measurement of 4 cm at the level of the aortic root, consistent with his past measurements with no aortic dissection. A moderate pericardial effusion was noted per the radiology report of the CAT scan as well as concerns of pericardial thickening. Dr. Snyder was consulted and evaluated the patient with a bedside 2D echo that revealed a mild circumferential pericardial effusion with no evidence of tamponade. Patient will be admitted to telemetry for further management and steroid treatment. Was given 60mg IV solu- medrol in the ED. Allergies Allergy/AdvReac Type Severity Reaction Status Date / Time animal dander Allergy Intermediate ITCHY Verified 10/26/19 06:49 EYES, SNEEZING, CAN TRIGGER ASTHMA ATTACK. Home Medications Home Medications Medication Instructions Recorded Confirmed Type aspirin [Aspir-81] 162 mg PO QDL 09/26/19 10/26/19 History metoprolol tartrate 50 mg PO AMHS 09/26/19 10/26/19 History Arnuity Ellipta 1 inh INHALATION DAILY 09/27/19 10/26/19 History albuterol sulfate 2 puff INHALATION Q6H PRN 09/27/19 10/26/19 History colchicine [Colcrys] 0.6 mg PO QAM #30 tab 09/30/19 10/26/19 Rx pantoprazole 40 mg PO QAM #30 tab 09/30/19 10/26/19 Rx fexofenadine [Mary Allergy] 180 mg PO DAILY 10/26/19 10/26/19 History ibuprofen 400 mg PO BID 10/26/19 10/26/19 History Past Med/Surg History Medical History (Updated 10/26/19 @ 11:08 by Ruby Fernández PA-C) Bicuspid aortic valve determined by imaging (Chronic) Essential tremor (Chronic) History of pericarditis (Acute) Mild persistent asthma (Chronic) Pericardial effusion (Acute) Postoperative pneumothorax Surgical History S/P aortic valve repair (Chronic) [facility] 08/12 Family History Other Colorectal cancer Heart disease Stroke Social History Preferred Language: [place] Communication Ability: Effective Handtools Repairer Required: No Beliefs That Will Affect Care: None Current Living Situation: Parent Other Information That Helps Us Care for You: No Feels Safe at Home: Yes Safety Concerns: Feels Safe At This Time Smoking Status: Never smoker Do You Dip or Chew Tobacco: No ; Second Hand Exposure: No ; Tobacco Cessation Education Requested by Patient: No Hx Alcohol Use: Yes Alcohol Intake Frequency: Rarely Hx Substance Use: No Review of Systems Review of Systems: At least ten systems reviewed and negative except as noted in the HPI. Physical Exam Physical Exam: General Appearance: WD/WN, vitals as above, appears ill, sitting up in bed, pleasant, conversing easily Head: normocephalic, atraumatic Eyes: normal inspection, PERRL, conjunctivae normal, anicteric sclerae ENT: external ear and nose normal, oropharynx normal Neck: trachea midline, no thyromegaly normal visual inspection Respiratory: normal respiratory effort, lungs clear to auscultation, no wheeze, rales, rhonchi. Normal insp/exp effort, no accessory muscle use Cardiovascular: tachycardic rate, rhythm, no murmur appreciated, normal peripheral pulses. Vessels: no JVD or carotid bruit Chest: Well-healed midline sternotomy incision, no pain to palpation of chest wall Abdomen/GI: normal bowel sounds, soft, nontender, no hepatosplenomegaly Extremities/Musculoskelatal: no cyanosis or clubbing, extremities motor strength 5/5 Neurologic: PERRL, EOMI, accommodation nl, no face palsy, no dysarthria CN's I I-XI intact bilaterally and moves all extremities Psychiatric: A+Ox3, euthymic affect Skin: no rashes, normal color, warm/dry Results & Data Vital Signs (Past 12 Hours) Vital Signs Temp Pulse Pulse Resp BP BP Pulse Ox 10/26/19 10:10 103 H 21 97 10/26/19 10:01 103 H 20 98 10/26/19 10:00 110 H 22 117/76 98 10/26/19 09:50 103 H 20 97 10/26/19 09:40 104 H 21 98 10/26/19 09:31 112 H 27 H 10/26/19 09:30 108 H 29 H 124/78 97 10/26/19 09:20 120 H 21 99 10/26/19 09:10 111 H 32 H 99 10/26/19 09:01 110 H 27 H 99 10/26/19 09:00 112 H 31 H 106/63 99 10/26/19 08:50 107 H 29 H 99 10/26/19 08:40 104 H 20 97 10/26/19 08:31 103 H 20 98 10/26/19 08:30 116 H 26 H 107/69 98 10/26/19 08:20 105 H 22 98 10/26/19 08:10 106 H 24 99 10/26/19 08:02 107 H 25 H 99 10/26/19 08:01 122/80 10/26/19 07:40 102 H 22 97 10/26/19 07:31 102 H 22 96 10/26/19 07:30 101 H 23 105/66 96 10/26/19 07:20 103 H 23 96 10/26/19 07:10 92 H 25 H 97 10/26/19 07:00 111 H 25 H 105/61 97 10/26/19 06:50 115 H 24 98 10/26/19 06:41 116 H 32 H 99 10/26/19 06:37 115 H 115 H 24 123/83 98 10/26/19 06:36 117 H 28 H 123/83 99 10/26/19 06:27 36.9 C 122 H 20 112/73 99 Laboratory Results Short CBC 10/26/19 Range/Units 06:41 WBC 9.64 (4.8-10.8) K/uL Hgb 14.4 (14.0-18.0) g/dL Hct 42.4 (42-52) % Plt Count 194 (130-400) K/uL BMP 10/26/19 06:41 Sodium 137 Potassium 3.3 L Chloride 103 Carbon Dioxide 28 BUN 15 Creatinine 1.09 Glucose 136 H Calcium 9.4 Cardiac Enzymes 10/26/19 Range/Units 06:41 Troponin I < 0.015 (0-0.045) ng/ml Liver Function 10/26/19 Range/Units 06:41 Total Bilirubin 0.7 (0.2-1) mg/dl AST 8 L (15-37) U/L ALT 17 (12-78) U/L Alkaline Phosphatase 75 (45-117) U/L Albumin 4.1 (3.4-5.0) gm/dl Diagnostic Findings CXR: IMPRESSION: 1. Cardiomegaly with no acute cardiopulmonary abnormality. 2. A small left pleural effusion is unchanged from previous. Chest CTA: IMPRESSION: 1. Cardiomegaly and moderate pericardial effusion. 2. Pericardial thickening is noted. Correlate clinically for evidence of pericarditis. 3. Trace pleural effusions. 4. There is ectasia of the aortic root which measures up to 4.0 cm. 5. The thoracic aorta is otherwise normal in caliber. No dissection is seen. 6. There is no airspace consolidation typical for pneumonia. 7. There is no evidence of pulmonary embolus in the main, lobar, or proximal segmental pulmonary arteries. ECG Rhythm: sinus tachycardia Findings: + T-wave inversion Change: the following changes noted Additional Comments: T wave inversions in inferior leads Supervising Physician Co-Signing Physician Notes 24yo M with a PMH of bicuspid aortic valve s/p repair at [facility] in 08/12 and postoperative transient pneumothorax, pericarditis and pericardial effusion who is presenting today with chest pain and sinus tachycardia. REcently admitted for progressive chest pain, found to have pericardial effusion and had pericardiocentesis on 09/28/[address] Hilton after poor response to medical therapy. Discharged on colchicine 0.4mg daily and ibuprofen 600mg tid. Follow up Echo 10/07/19 reported to show no residual effusion His ibuprofen dose was reduced to 400mg bid. He developed chest pain, pleuritic over the weekend. Other detailed history as noted by Ruby Tavarez PAC Physical exam is as noted above CTA chest show similar aortic measurement to pass images without dissection Bedside Echo showed mild circumferential pericardial effusion without tamponade CRP 10.70 Recurrent pericardial effusion, pericarditis Got iv solumedrol 60mg in ER Discussed the patient with Dr Snyder Will continue colchicine 0.6mg daily and home dose of metoprolol 50mg am hs Will reassess in AM and continue steroids. Will likely need long steroid taper per Benefits Advisor Follow up Cardiology recommendation Monitor telemetry and vitals K was 3.3. Replete and monitor
[2019-10-26] MEDS ORDERED: ACETAMINOPHEN 325 MG TAB PO PRN (10:57)
[2019-10-26] MEDS ORDERED: ONDANSETRON INJ 2 MG/ML 2 ML VIAL IV PRN (10:57)
[2019-10-26] MEDS ORDERED: SODIUM CHLORIDE 0.9% 1000ML 1,000 ML IV SCH (10:57)
[2019-10-26] MEDS ORDERED: ALBUTEROL HFA 8 GM INHALER INH PRN (10:57)
[2019-10-26] MEDS ORDERED: COLCHICINE 0.6 MG TAB PO ONE (11:14)
[2019-10-26] MEDS ORDERED: FEXOFENADINE HCL 180 MG TAB PO ONE (11:15)
[2019-10-26] MEDS ORDERED: PANTOprazole 40 MG TAB PO ONE (11:16)
[2019-10-26] MEDS ORDERED: METOPROLOL TARTRATE 50 MG TAB PO ONE (11:16)
[2019-10-26] MEDS ORDERED: KETOROLAC TROMETHAMINE 15 MG/ML VIAL IV ONE (14:45)
--- NOTE | 2019-10-26 15:11 | Emergency Department Note ---
Entered by Brad Mcgraw acting as a scribe for ED Provider Note CHIEF COMPLAINT: Chest pain HISTORY OF PRESENT ILLNESS: The patient is a 24 year old male who presents to the Emergency Room with complaints of intermittent chest pain that started about 4 days ago. The patient reports that the pain started on the right side near his collar bone but has moved to the left side since where it is now currently present. The patient rates the pain as a 6/10 and notes it does not radiate anywhere. The patient endorses some associated nausea that began this morning. He also mentioned that yesterday he had hot and cold sweats along with general body aches but he did not formerly take his temperature. The patient adds that he has an extensive cardiac history having just had an aortic valve repair in July of this year at the [facility]. The patient developed a pericardial effusion which was drained by Dr. Hilton on 09/28/19. 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 Pt denies LOC, headache, fevers, chills, diaphoresis, visual changes, neck pain, breathing difficulties, vomiting, abdominal pain, back pain, melena, hematochezia, urinary symptoms, numbness, weakness, lymphadenopathy, rash, or other complaints. REVIEW OF SYSTEMS: See HPI for pertinent positives and negatives. A total of ten systems were reviewed and were otherwise negative. PMHx/PSHx: Aortic valve repair, Pericardial effusion, Essential tremor SOCIAL HISTORY: Patient lives at home. PHYSICAL EXAM: GENERAL: Awake, alert, uncomfortable-appearing, in no distress HENT: Normocephalic, atraumatic. Oropharynx unremarkable. EYES: Normal conjunctiva. Sclera non-icteric. NECK: Inspection normal. Non-tender. Supple. No nuchal rigidity. FROM. No masses. RESPIRATORY: Clear to auscultation. No wheezes. No rales. Normal respiratory effort. CARDIAC: Tachycardic rate. Normal rhythm. No murmurs. No rubs. Extremities warm and well perfused. Pulses equal. No JVD. GI: Soft, non-distended. No tenderness to palpation. No rebound or guarding. No masses. RECTAL: Deferred. MUSCULOSKELETAL: Atraumatic. Chest examination reveals no tenderness. The back is symmetrical on inspection without obvious abnormality. There is no CVA tenderness to palpation. No joint edema. LOWER EXTREMITIES: Calves are equal size bilaterally and non-tender. No edema. No discoloration. NEURO: Normal sensorium. No sensory or motor deficits noted. SKIN: No rash or jaundice noted. EMERGENCY DEPARTMENT COURSE: 0645: Past medical records reviewed. The patient was evaluated in room , and a complete history and physical examination were performed. I also performed a bedside ultrasound of the patient's heart. 0741: I reevaluated the patient and he is resting comfortably in bed. 0835: I discussed the patient's case with Dr. Masood Hernández and he recommended keeping the patient and ordering a stat echo. He is going to come evaluate the patient. 0840: I updated the patient on results as well as the treatment plan which is he agreeable with. 0903: I discussed the patient's case with Ruby DUFF who is working under Dr. Farhan Loredo Hospitalist. They are going to accept the patient for further evaluation. 0910: I reassessed the patient and updated him on the plan. MEDICAL DECISION MAKING: B2 Prior records/ancillary studies reviewed. The patient had a pericardiocentesis performed by Dr. Hilton on 09/28/2019. Triage Nursing notes reviewed and agree them. Additional history obtained from the family. The patient's history was concerning for chest pain with recent pericardiocentesis and aortic valve repair. Differential diagnosis: Etiologies such as pericardial effusion, pericarditis, cardiac ischemia, aortic dissection, pulmonary embolism, pneumonia, pneumothorax, musculoskeletal, infections, complication of aortic valve surgery, myocarditis, esophageal rupture, gastrointestinal, as well as others were entertained. Physical examination: As above. Mild tachycardia. ER treatment provided: IV Zofran IV Dilaudid Normal saline hydration On reassessment the patient felt better. Diagnostic interpretation by me: The electrocardiogram revealed tachycardia and T wave inversions. The labs revealed an unremarkable CBC and chemistry panel. Troponin negative. Imaging studies: Chest imaging reveals cardiomegaly and a left-sided effusion. No pneumothorax. Normal mediastinum. CT imaging of the chest reveals no aortic dissection. There is a moderate pericardial effusion present. Consultation: Consultation was made with Facundo hernández, Dr. Snyder. He evaluated the patient in the ER. He recommended admission for further management of pericardial effusion and pericarditis. A consultation was placed with the hospitalist. The case was discussed and diagnostics were reviewed. The patient was evaluated in the ER for further treatment. IMPRESSION: Pericarditis Pericardial effusion Left sided chest pain Acute EKG changes PLAN: Being evaluated by the hospitalist The scribe's documentation has been prepared under my direction and personally reviewed by me in its entirety. I confirm that the note above accurately reflects all work, treatment, procedures, and medical decision making performed by me. Impression & Plan Pericarditis, Pericardial effusion, Left-sided chest pain, Acute electrocardiogram changes Past Med/Surg History Medical History (Updated 10/26/19 @ 11:08 by Ruby Fernández PA-C) Bicuspid aortic valve determined by imaging (Chronic) Essential tremor (Chronic) History of pericarditis (Acute) Mild persistent asthma (Chronic) Pericardial effusion (Acute) Postoperative pneumothorax Surgical History S/P aortic valve repair (Chronic) [facility] 08/12 Family History Other Colorectal cancer Heart disease Stroke Social History Preferred Language: Tajik Communication Ability: Effective Convict Guard Required: No Beliefs That Will Affect Care: None Current Living Situation: Parent Other Information That Helps Us Care for You: No Feels Safe at Home: Yes Safety Concerns: Feels Safe At This Time Smoking Status: Never smoker Do You Dip or Chew Tobacco: No ; Second Hand Exposure: No ; Tobacco Cessation Education Requested by Patient: No Hx Alcohol Use: Yes Alcohol Intake Frequency: Rarely Hx Substance Use: No Results & Data Vital Signs Vital Signs - 24 hr 10/26/19 06:27 10/26/19 06:36 10/26/19 06:37 Temperature 36.9 C Temperature Source Oral Pulse Rate 122 H 117 H 115 H Pulse Rate [Apical] 115 H Pulse Rate from SpO2 Sensor 117 H Pulse Rhythm Regular Respiratory Rate 20 28 H 24 Respiratory Effort / Characteristics Non-Labored Respiratory Depth Normal Blood Pressure 112/73 123/83 Blood Pressure [Left Arm] 123/83 Blood Pressure Mean 86 91 Blood Pressure Mean [Left Arm] 96 Blood Pressure Position Sitting Blood Pressure Position [Left Arm] Sitting Pulse Oximetry 99 99 98 Oxygen Delivery Method Room Air Room Air Sepsis Recent Fever Within 48 Hours No Sepsis Action Taken by Nursing No Action Required 10/26/19 06:41 10/26/19 06:49 10/26/19 06:50 Temperature Temperature Source Pulse Rate 116 H 115 H Pulse Rate [Apical] Pulse Rate from SpO2 Sensor 115 H 116 H Pulse Rhythm Respiratory Rate 32 H 24 Respiratory Effort / Characteristics Spontaneous Short of Breath SOB on Exertion Splinting (from pain) Respiratory Depth Blood Pressure Blood Pressure [Left Arm] Blood Pressure Mean Blood Pressure Mean [Left Arm] Blood Pressure Position Blood Pressure Position [Left Arm] Pulse Oximetry 99 98 Oxygen Delivery Method Sepsis Recent Fever Within 48 Hours Sepsis Action Taken by Nursing 10/26/19 07:00 10/26/19 07:10 10/26/19 07:20 Temperature Temperature Source Pulse Rate 111 H 92 H 103 H Pulse Rate [Apical] Pulse Rate from SpO2 Sensor 111 H 93 H 103 H Pulse Rhythm Respiratory Rate 25 H 25 H 23 Respiratory Effort / Characteristics Respiratory Depth Blood Pressure 105/61 Blood Pressure [Left Arm] Blood Pressure Mean 82 Blood Pressure Mean [Left Arm] Blood Pressure Position Blood Pressure Position [Left Arm] Pulse Oximetry 97 97 96 Oxygen Delivery Method Sepsis Recent Fever Within 48 Hours Sepsis Action Taken by Nursing 10/26/19 07:30 10/26/19 07:31 10/26/19 07:40 Temperature Temperature Source Pulse Rate 101 H 102 H 102 H Pulse Rate [Apical] Pulse Rate from SpO2 Sensor 101 H 101 H 102 H Pulse Rhythm Respiratory Rate 23 22 22 Respiratory Effort / Characteristics Respiratory Depth Blood Pressure 105/66 Blood Pressure [Left Arm] Blood Pressure Mean 76 Blood Pressure Mean [Left Arm] Blood Pressure Position Blood Pressure Position [Left Arm] Pulse Oximetry 96 96 97 Oxygen Delivery Method Sepsis Recent Fever Within 48 Hours Sepsis Action Taken by Nursing 10/26/19 08:01 10/26/19 08:02 10/26/19 08:10 Temperature Temperature Source Pulse Rate 107 H 106 H Pulse Rate [Apical] Pulse Rate from SpO2 Sensor 107 H 106 H Pulse Rhythm Respiratory Rate 25 H 24 Respiratory Effort / Characteristics Respiratory Depth Blood Pressure 122/80 Blood Pressure [Left Arm] Blood Pressure Mean 92 Blood Pressure Mean [Left Arm] Blood Pressure Position Blood Pressure Position [Left Arm] Pulse Oximetry 99 99 Oxygen Delivery Method Sepsis Recent Fever Within 48 Hours Sepsis Action Taken by Nursing 10/26/19 08:20 10/26/19 08:30 10/26/19 08:31 Temperature Temperature Source Pulse Rate 105 H 116 H 103 H Pulse Rate [Apical] Pulse Rate from SpO2 Sensor 105 H 115 H 103 H Pulse Rhythm Respiratory Rate 22 26 H 20 Respiratory Effort / Characteristics Respiratory Depth Blood Pressure 107/69 Blood Pressure [Left Arm] Blood Pressure Mean 78 Blood Pressure Mean [Left Arm] Blood Pressure Position Blood Pressure Position [Left Arm] Pulse Oximetry 98 98 98 Oxygen Delivery Method Sepsis Recent Fever Within 48 Hours Sepsis Action Taken by Nursing 10/26/19 08:40 10/26/19 08:50 10/26/19 09:00 Temperature Temperature Source Pulse Rate 104 H 107 H 112 H Pulse Rate [Apical] Pulse Rate from SpO2 Sensor 106 H 105 H 111 H Pulse Rhythm Respiratory Rate 20 29 H 31 H Respiratory Effort / Characteristics Respiratory Depth Blood Pressure 106/63 Blood Pressure [Left Arm] Blood Pressure Mean 74 Blood Pressure Mean [Left Arm] Blood Pressure Position Blood Pressure Position [Left Arm] Pulse Oximetry 97 99 99 Oxygen Delivery Method Sepsis Recent Fever Within 48 Hours Sepsis Action Taken by Nursing 10/26/19 09:01 10/26/19 09:10 10/26/19 09:20 Temperature Temperature Source Pulse Rate 110 H 111 H 120 H Pulse Rate [Apical] Pulse Rate from SpO2 Sensor 110 H 111 H 118 H Pulse Rhythm Respiratory Rate 27 H 32 H 21 Respiratory Effort / Characteristics Respiratory Depth Blood Pressure Blood Pressure [Left Arm] Blood Pressure Mean Blood Pressure Mean [Left Arm] Blood Pressure Position Blood Pressure Position [Left Arm] Pulse Oximetry 99 99 99 Oxygen Delivery Method Sepsis Recent Fever Within 48 Hours Sepsis Action Taken by Nursing 10/26/19 09:30 10/26/19 09:31 Temperature Temperature Source Pulse Rate 108 H 112 H Pulse Rate [Apical] Pulse Rate from SpO2 Sensor 108 H Pulse Rhythm Respiratory Rate 29 H 27 H Respiratory Effort / Characteristics Respiratory Depth Blood Pressure 124/78 Blood Pressure [Left Arm] Blood Pressure Mean 87 Blood Pressure Mean [Left Arm] Blood Pressure Position Blood Pressure Position [Left Arm] Pulse Oximetry 97 Oxygen Delivery Method Sepsis Recent Fever Within 48 Hours Sepsis Action Taken by Retirement Medications Current Medication List: was personally reviewed by me Laboratory Data Attestation: I reviewed the patient's lab results. Result diagrams: 10/26/19 06:41 10/26/19 06:41 Lab Results 10/26/19 10/26/19 10/26/19 Range/Units 06:41 06:41 06:41 WBC 9.64 (4.8-10.8) K/uL RBC 4.76 (4.7-6.1) M/uL Hgb 14.4 (14.0-18.0) g/dL Hct 42.4 (42-52) % MCV 89.1 (80-100) fL MCH 30.3 (25-34) pg MCHC 34.0 (32-36) g/dL RDW Std Deviation 40.7 (36.4-46.3) fL RDW Coeff of Jefferson 12.6 (11.5-14.5) % Plt Count 194 (130-400) K/uL MPV 10.4 (7.4-10.4) fL Immature Gran % (Auto) 0.2 % Neut % (Auto) 73.7 % Lymph % (Auto) 9.6 % Douglas % (Auto) 15.5 % Eos % (Auto) 0.7 % Baso % (Auto) 0.3 % Immature Gran # (Auto) 0.02 (0.00-0.02) K/uL Neut # (Auto) 7.10 H (1.4-6.5) K/uL Lymph # (Auto) 0.93 L (1.2-3.4) K/uL Douglas # (Auto) 1.49 H (0.11-0.59) K/uL Eos # (Auto) 0.07 (0-0.5) K/uL Baso # (Auto) 0.03 (0-0.2) K/uL ESR 33 H (0-14) mm/hr Sodium 137 (136-145) mmol/L Potassium 3.3 L (3.5-5.1) mmol/L Chloride 103 (98-107) mmol/L Carbon Dioxide 28 (21-32) mmol/L Anion Gap 6.0 (3-11) BUN 15 (7-18) mg/dl Creatinine 1.09 (0.6-1.4) mg/dl Est Cr Clr Drug Dosing 101.3 ml/min Est GFR ( Amer) 111.1 Est GFR (Non-Af Amer) 95.8 BUN/Creatinine Ratio 14.0 (10-20) Glucose 136 H (70-99) mg/dl Calcium 9.4 (8.5-10.1) mg/dl Total Bilirubin 0.7 (0.2-1) mg/dl AST 8 L (15-37) U/L ALT 17 (12-78) U/L Alkaline Phosphatase 75 (45-117) U/L Troponin I < 0.015 (0-0.045) ng/ml C-Reactive Protein (0-0.29) mg/dl Total Protein 8.0 (6.4-8.2) gm/dl Albumin 4.1 (3.4-5.0) gm/dl Globulin 3.9 (2.5-4.0) gm/dl Albumin/Globulin Ratio 1.1 (0.9-2) Lipase 91 (73-393) U/L 10/26/19 Range/Units 06:41 WBC (4.8-10.8) K/uL RBC (4.7-6.1) M/uL Hgb (14.0-18.0) g/dL Hct (42-52) % MCV (80-100) fL MCH (25-34) pg MCHC (32-36) g/dL RDW Std Deviation (36.4-46.3) fL RDW Coeff of Jefferson (11.5-14.5) % Plt Count (130-400) K/uL MPV (7.4-10.4) fL Immature Gran % (Auto) % Neut % (Auto) % Lymph % (Auto) % Douglas % (Auto) % Eos % (Auto) % Baso % (Auto) % Immature Gran # (Auto) (0.00-0.02) K/uL Neut # (Auto) (1.4-6.5) K/uL Lymph # (Auto) (1.2-3.4) K/uL Douglas # (Auto) (0.11-0.59) K/uL Eos # (Auto) (0-0.5) K/uL Baso # (Auto) (0-0.2) K/uL ESR (0-14) mm/hr Sodium (136-145) mmol/L Potassium (3.5-5.1) mmol/L Chloride (98-107) mmol/L Carbon Dioxide (21-32) mmol/L Anion Gap (3-11) BUN (7-18) mg/dl Creatinine (0.6-1.4) mg/dl Est Cr Clr Drug Dosing ml/min Est GFR ( Amer) Est GFR (Non-Af Amer) BUN/Creatinine Ratio (10-20) Glucose (70-99) mg/dl Calcium (8.5-10.1) mg/dl Total Bilirubin (0.2-1) mg/dl AST (15-37) U/L ALT (12-78) U/L Alkaline Phosphatase (45-117) U/L Troponin I (0-0.045) ng/ml C-Reactive Protein 10.70 H (0-0.29) mg/dl Total Protein (6.4-8.2) gm/dl Albumin (3.4-5.0) gm/dl Globulin (2.5-4.0) gm/dl Albumin/Globulin Ratio (0.9-2) Lipase (73-393) U/L Administered Medications Discontinued Medications Colchicine (Colcrys) 0.6 mg PO NOW ONE Stop: 10/26/19 11:15 Last Admin: 10/26/19 12:10 Dose: 0.6 mg Documented by: [id number] Fexofenadine HCl (Mary) 180 mg PO NOW ONE Stop: 10/26/19 11:16 Last Admin: 10/26/19 12:10 Dose: 180 mg Documented by: [id number] Hydromorphone HCl (Dilaudid) 0.5 mg IV Q15M PRN PRN Reason: Pain Stop: 11/09/19 06:46 Last Admin: 10/26/19 06:56 Dose: 0.5 mg Documented by: [id number] Sodium Chloride (Nss 1000ml) 1,000 mls @ 125 mls/hr IV .Q8H STA Stop: 10/26/19 14:46 Last Admin: 10/26/19 06:57 Dose: 125 mls/hr Documented by: [id number] Ioversol (Optiray 320 125ml) 117 ml IV ONCE PRN PRN Reason: Interaction Checking Stop: 10/30/19 07:54 Last Admin: 10/26/19 07:55 Dose: 117 ml Documented by: [id number] Ketorolac Tromethamine (Toradol) 15 mg IV NOW ONE Stop: 10/26/19 14:46 Last Admin: 10/26/19 15:08 Dose: 15 mg Documented by: [id number] Methylprednisolone (Solumedrol) 60 mg IV NOW STA Stop: 10/26/19 09:16 Last Admin: 10/26/19 09:22 Dose: 60 mg Documented by: [id number] Metoprolol Tartrate (Lopressor) 50 mg PO NOW ONE Stop: 10/26/19 11:17 Last Admin: 10/26/19 12:10 Dose: 50 mg Documented by: [id number] Ondansetron HCl (Zofran) 4 mg IV NOW STA Stop: 10/26/19 06:48 Last Admin: 10/26/19 06:56 Dose: 4 mg Documented by: [id number] Pantoprazole Sodium (Protonix) 40 mg PO NOW ONE Stop: 10/26/19 11:17 Last Admin: 10/26/19 12:10 Dose: 40 mg Documented by: [id number] Imaging Data Radiologist's Impression: Radiology results as stated below per my review and the radiologist's interpretation: SINGLE VIEW CHEST CLINICAL HISTORY: Atypical chest pain. FINDINGS: An AP, portable, upright chest radiograph is compared to study dated 09/26/2019. The examination is degraded by portable technique and patient rotation. The patient is status post midline sternotomy. The heart is enlarged. The pulmonary vasculature is noncongested. There is a small left pleural effusion with associated atelectasis. The lungs and pleural spaces are otherwise clear. No pneumothorax is seen. The bony thorax is grossly intact. IMPRESSION: 1. Cardiomegaly with no acute cardiopulmonary abnormality. 2. A small left pleural effusion is unchanged from previous. Electronically signed by: Wing Salter M.D. 10/26/2019 7:[address] ANGIOGRAM OF THE CHEST COMBO CLINICAL HISTORY: Atypical chest pain. COMPARISON STUDY: Chest x-ray dated 10/26/2019. TECHNIQUE: Before and following the IV administration of 117 cc of Optiray 320, CT angiogram of the chest was performed from the thoracic inlet to the upper abdomen utilizing the dissection protocol. Images are reviewed in the axial, sagittal, and coronal planes. 3-D MIPS images are created and assessed. IV contrast was administered without complication. A dose lowering technique was utilized adhering to the principles of ALARA. CT DOSE: 449.64 mGy.cm FINDINGS: Thyroid: Imaged portions of the thyroid gland are normal in size and attenuation. Thoracic aorta: No intramural hematoma is seen on the unenhanced series. There is ectasia of the aortic root which measures up to 4.0 cm in diameter. The thoracic aorta is otherwise normal in caliber and demonstrates standard 3-vessel arch anatomy. No dissection is seen. The arch vessels are widely patent. Pulmonary vasculature: The pulmonary trunk is normal in caliber. There are no filling defects identified within the main, lobar, or proximal segmental pulmonary emboli to suggest pulmonary embolus. Heart: The patient is status post midline sternotomy. The heart is enlarged and there is a moderate pericardial effusion. Mild pericardial thickening is noted. Lungs and pleural spaces: There are trace pleural effusions. There is no airspace consolidation typical for pneumonia. The trachea and central airways are clear. Mediastinum: There is no mediastinal lymphadenopathy. Lyric: Clear. Axillae: There is no axillary lymphadenopathy. Upper abdomen: Partially visualized upper abdominal viscera is within normal limits. Skeletal structures: No lytic or blastic bony lesions are seen. IMPRESSION: 1. Cardiomegaly and moderate pericardial effusion. 2. Pericardial thickening is noted. Correlate clinically for evidence of pericarditis. 3. Trace pleural effusions. 4. There is ectasia of the aortic root which measures up to 4.0 cm. 5. The thoracic aorta is otherwise normal in caliber. No dissection is seen. 6. There is no airspace consolidation typical for pneumonia. 7. There is no evidence of pulmonary embolus in the main, lobar, or proximal segmental pulmonary arteries. Electronically signed by: Wing Salter M.D. 10/26/2019 8:17 AM ECG Data Attestation: I personally reviewed and interpreted this ECG as follows: Indication: + chest pain Rate (beats per minute): 116 Rhythm: sinus tachycardia ECG Intervals/blocks: + Normal QRS ECG Orient: + Normal ECG ST segments: + T-wave inversions (Inferior and lateral) ECG Findings: + Other (LVH with repolarization abnormality) Comparison ECG Date: from (09/29/19) Change: the following changes noted (TWIs are new. ) Blood Pressure Blood Pressure Findings: Elevated blood pressure Blood Pressure Disposition: further management by hospitalist Discharge Plan Visit Data *Final* Discharge Date/Time: 10/26/19 10:21 Chief Complaint: Chest Pain Stated Complaint: CHEST PAIN,SOB,POSS PERICARDIAL EFFUSION ED Provider: Mario Hinson Discharge Problem: Pericarditis, Pericardial effusion, Left-sided chest pain, Acute electrocardiogram changes Patient Disposition: Admitted As Inpatient Discharge Instructions Interventions: ED Discharge Assessment Last Done: 10/26/19 10:21 The scribe's documentation has been prepared under my direction and personally reviewed by me in its entirety. I confirm that the note above accurately reflects all work, treatment, procedures, and medical decision making performed by me.
[2019-10-26] MEDS ORDERED: POTASSIUM CHLORIDE 20 MEQ TABCR PO ONE (17:30)
[2019-10-26] MEDS: METOPROLOL TARTRATE 50 MG TAB PO SCH (21:03)
[2019-10-27 06:01] LABS: Hematocrit (blood only) 35.4 % (42-52); Hemoglobin 11.9 g/dL (14.0-18.0); Mean Corpuscular Hgb Conc 33.6 g/dL (32-36); Mean Corpuscular Volume 89.2 fL (80-100); Mean Platelet Volume 10.3 fL (7.4-10.4); Platelet Count 203 K/uL (130-400); RDW Coefficient of Variation 12.4 % (11.5-14.5); RDW Standard Deviation 39.5 fL (36.4-46.3); Red Blood Count 3.97 M/uL (4.7-6.1); White Blood Count 10.46 K/uL (4.8-10.8)
[2019-10-27 06:34] LABS: BUN Creatinine Ratio 12.6 (10-20); Calcium 8.7 mg/dl (8.5-10.1); Creatinine Clr Calc Pharmacy 120.1 ml/min; Est GFR (African American) 136.4; Est GFR (Non-African American) 117.6; Magnesium 2.1 mg/dl (1.8-2.4); Potassium 3.8 mmol/L (3.5-5.1)
[2019-10-27] MEDS: METOPROLOL TARTRATE 50 MG TAB PO SCH (07:37)
[2019-10-27] MEDS ORDERED: COLCHICINE 0.6 MG TAB PO SCH (09:00)
[2019-10-27] MEDS ORDERED: FLUTICASONE FUROATE INH SCH (09:00)
[2019-10-27] MEDS ORDERED: PANTOprazole 40 MG TAB PO SCH (09:00)
[2019-10-27] MEDS ORDERED: FEXOFENADINE HCL 180 MG TAB PO SCH (09:00)
[2019-10-27] MEDS ORDERED: methylPREDNISolone 60 MG in SYRINGE 0 ML IV ONE (10:00)
--- NOTE | 2019-10-27 11:09 | Cardiology Progress Note ---
Date of Service October 27, 2019 Assessment & Plan (1) Post pericardiotomy syndrome: (2) S/P aortic valve repair: Patient clinically improved with improvement in generalized malaise feeling and chest pain. The sinus tachycardia noted yesterday has resolved. He is receiving his home metoprolol dose. Proceed with solumedrol 60 mg IV x 1 this am, and toradol 15 mg IV x 1. Continue protonix. Plan for discharge later today off of aspirin and ibuprofen. Start long slow taper of prednisone from 30 mg to 2.5 mg over 6 weeks. Will perform repeat echo / outpt visit next week. Subjective CC: follow up chest pain Subjective: Patient feeling overall improved. Still has chest pain, however, down to a 2/10 intensity. Telemetry reveals SB in the 50's overnight and this am. One 3 beat rhonda of NSVT noted, at 4:34 am. CV ROS: denies shortness of breath, denies palpitations, no edema. Review of Systems Review of Systems: All systems reviewed & are unremarkable except as noted in HPI & below Physical Exam Physical Exam: Temp Pulse Resp BP Pulse Ox 36.5 C 63 18 119/75 99 10/27/19 10:52 10/27/19 10:52 10/27/19 10:52 10/27/19 10:52 10/27/19 10:52 Constitutional: WD/WN, vitals as above Respiratory: normal respiratory effort, lungs clear to auscultation Cardiovascular: RRR, no murmur, no edema Skin: no rashes, warm and dry Neurologic: PERRL, EOMI, accommodation nl, no face palsy, no dysarthria Results & Data Vital Signs (Past 12 Hours) Vital Signs Temp Pulse Pulse Resp BP BP Pulse Ox 10/27/19 10:52 36.5 C 63 18 119/75 99 10/27/19 08:53 59 L 10/27/19 08:10 36.5 C 74 17 112/64 98 10/27/19 03:20 36.8 C 71 18 107/58 L 98 10/27/19 00:01 37.1 C 78 18 122/76 98 10/26/19 23:20 78 Laboratory Results CBC 10/27/19 Range/Units 05:28 WBC 10.46 (4.8-10.8) K/uL RBC 3.97 L (4.7-6.1) M/uL Hgb 11.9 L (14.0-18.0) g/dL Hct 35.4 L (42-52) % Plt Count 203 (130-400) K/uL Comprehensive Metabolic Panel 10/27/19 Range/Units 05:28 Sodium 139 (136-145) mmol/L Potassium 3.8 D (3.5-5.1) mmol/L Chloride 108 H (98-107) mmol/L Carbon Dioxide 26 (21-32) mmol/L BUN 12 (7-18) mg/dl Creatinine 0.92 (0.6-1.4) mg/dl Glucose 128 H (70-99) mg/dl Calcium 8.7 (8.5-10.1) mg/dl Intake and Output 10/26/19 10/27/19 10/27/19 22:59 06:59 14:59 Intake Total 1400 / 2890 1100 / 2890 Balance 1400 / 2890 1100 / 2890 Intake: IV 1000 / 2000 1000 / 2000 Nss 1000ML 1,000 ml @ 100 mls/ 1000 / 2000 1000 / 2000 hr IV .Q10H [facility] Rx#:[id number] Oral 400 / 890 100 / 890 Other: Weight 67.4 kg Diagnostic Findings EKG SR at 70 bpm, ST elevation consistent with pericarditis. Medications Administered Current Inpatient Medications Acetaminophen (Tylenol) 650 mg PO Q4H PRN PRN Reason: Pain or Fever Stop: 11/25/19 10:56 Albuterol (Ventolin Hfa) 2 puffs INH Q6H PRN PRN Reason: Shortness Of Breath Or Wheezing Stop: 11/25/19 10:56 Colchicine (Colcrys) 0.6 mg PO QAM [facility] Stop: 11/26/19 08:59 Last Admin: 10/27/19 07:37 Dose: 0.6 mg Documented by: Fexofenadine HCl (Mary) 180 mg PO DAILY [facility] Stop: 11/26/19 08:59 Last Admin: 10/27/19 07:38 Dose: 180 mg Documented by: Ketorolac Tromethamine (Toradol) 15 mg IV NOW ONE Stop: 10/27/19 11:05 Metoprolol Tartrate (Lopressor) 50 mg PO [facility] Stop: 11/25/19 20:59 Last Admin: 10/27/19 07:37 Dose: 50 mg Documented by: Miscellaneous (Order Awaiting Action) 1 ea N/A QS [facility] Stop: 11/25/19 11:59 Last Admin: 10/27/19 07:31 Dose: Not Given Documented by: Ondansetron HCl (Zofran) 4 mg IV Q6H PRN PRN Reason: Nausea Stop: 11/25/19 10:56 Pantoprazole [facility] ([facility]ix) [facility] [place] Stop: 11/26/19 08:59 Last Admin: 10/27/19 07:36 Dose: 40 mg Documented by:
[2019-10-27] MEDS ORDERED: KETOROLAC TROMETHAMINE 15 MG/ML VIAL IV ONE (11:30)
--- NOTE | 2019-10-27 13:51 | Hospitalist Progress Note ---
Date of Service October 27, 2019 Assessment & Plan (1) Post pericardiotomy syndrome: (2) S/P aortic valve repair: Patient is a 24-year-old male with history of bicuspid aoritc valve s/p repair at [facility] in 08/12 and postoperative transient pneumothorax, pericarditis and pericardial effusion who is presenting today with chest pain and sinus tachycardia. Post pericardiotomy syndrome Recurrent pericardial effusion H/o of aortic valve repair in July 2019 with post-op complications including a large circumferential pericardial effusion s/p pericardiocentesis on September [address] Hilton --CTA:Cardiomegaly and moderate pericardial effusion. Pericardial thickening is noted. Correlate clinically for evidence of pericarditis. Trace pleural effusions. There is ectasia of the aortic root which measures up to 4.0 cm. The thoracic aorta is otherwise normal in caliber. No dissection is seen. There is no airspace consolidation typical for pneumonia. There is no evidence of pulmonary embolus in the main, lobar, or proximal segmental pulmonary arteries. --ECHO: Circumferential pericardial effusion. Mild thickening of the pericardium. No signs of tamponade. --On colchicine, ibuprofen prior to admission --Received IV Solu-Medrol 60 mg daily for 2 days --Transition to prednisone taper --30 mg to 2.5 mg over 6 weeks as per cardiology --Continue colchicine --Discontinue aspirin, ibuprofen --Appreciate cardiology input --Plan for repeat limited echo on November 03, 2019 at 7:15 AM as outpatient Needs follow-up with cardiology as outpatient--on November 05, 2019 at 12:[address] Sosa (3) Mild persistent asthma: Continue home inhalers No signs of exacerbation DVT Px: SCDs Code status: Full Code Disposition: Plan to discharge home today Subjective Patient is seen and examined at bedside States chest pain has much improved Shortness of breath, nausea completely resolved Denies any palpitations, abdominal pain, headache, dizziness Offers no other complaints Discussed with cardiology today Review of Systems Review of Systems: All systems reviewed & are unremarkable except as noted in HPI & below Physical Exam Physical Exam: Physical Exam: Vitals signs as noted above General Appearance:Moderately built and nourished, no apparent distress Head: normocephalic, Atraumatic Eyes: normal inspection, EOMI Neck: supple, Trachea midline Respiratory/Chest: Normal breath sounds, CTA Cardiovascular: S1, S2, No murmur Abdomen/GI:Soft, Non tender, Bowel sounds present Extremities/Musculoskelatal:normal inspection, no edema Neurologic/Psych:AAOX3, grossly no focal neurological deficits Skin: normal color, warm Results & Data Vital Signs (Past 12 Hours) Vital Signs Temp Pulse Pulse Resp BP BP Pulse Ox 10/27/19 10:52 36.5 C 63 18 119/75 99 10/27/19 08:53 59 L 10/27/19 08:10 36.5 C 74 17 112/64 98 10/27/19 03:20 36.8 C 71 18 107/58 L 98 Laboratory Results Short CBC 10/27/19 Range/Units 05:28 WBC 10.46 (4.8-10.8) K/uL Hgb 11.9 L (14.0-18.0) g/dL Hct 35.4 L (42-52) % Plt Count 203 (130-400) K/uL BMP 10/27/19 05:28 Sodium 139 Potassium 3.8 D Chloride 108 H Carbon Dioxide 26 BUN 12 Creatinine 0.92 Glucose 128 H Calcium 8.7
--- NOTE | 2019-10-27 14:06 | Discharge Summary ---
Date of Service October 27, 2019 Admission HPI Per Admitting Provider This is a 24yo M with a PMH of bicuspid aoritc valve s/p repair at [facility] in 08/12 and postoperative transient pneumothorax, pericarditis and pericardial effusion who is presenting today with chest pain and sinus tachycardia. Patient's primary drafter topographical is Dr. Sosa of [facility] cardiology group. Following aortic valve repair in July 2019, patient was admitted to [facility] in early September with progressive chest discomfort and was found to have a large circumferential pericardial effusion and underwent pericardiocentesis on September [address] Hilton. Was discharged home on colchicine 0.4 mg daily and ibuprofen 600 mg TID. Had a follow-up echocardiogram at [facility] on October 07 that revealed no residual pericardial fluid. At this time, ibuprofen was reduced to 400 mg twice daily and colchicine was continued. Over the weekend, patient began to experience right-sided chest discomfort up to R clavicle primarily with deep inspiration. Pain has since migrated and localize d below the left nipple. Endorses subjective fever and feelings of malaise starting yesterday. Pain had progressed as of 0500 this morning so patient came to ED for further evaluation. Denies chills, lightheadedness, visual changes, palpitations, shortness of breath, nausea or vomiting. In ED, found to have sinus tachycardia at 115. Afebrile and normotensive. Chest CTA revealed maximum aortic measurement of 4 cm at the level of the aortic root, consistent with his past measurements with no aortic dissection. A moderate pericardial effusion was noted per the radiology report of the CAT scan as well as concerns of pericardial thickening. Dr. Snyder was consulted and evaluated the patient with a bedside 2D echo that revealed a mild circumferential pericardial effusion with no evidence of tamponade. Patient will be admitted to telemetry for further management and steroid treatment. Was given 60mg IV solu- medrol in the ED. Admission Exam Per Admitting Provider General Appearance: WD/WN, vitals as above, appears ill, sitting up in bed, pleasant, conversing easily Head: normocephalic, atraumatic Eyes: normal inspection, PERRL, conjunctivae normal, anicteric sclerae ENT: external ear and nose normal, oropharynx normal Neck: trachea midline, no thyromegaly normal visual inspection Respiratory: normal respiratory effort, lungs clear to auscultation, no wheeze, rales, rhonchi. Normal insp/exp effort, no accessory muscle use Cardiovascular: tachycardic rate, rhythm, no murmur appreciated, normal pe ripheral pulses. Vessels: no JVD or carotid bruit Chest: Well-healed midline sternotomy incision, no pain to palpation of chest wall Abdomen/GI: normal bowel sounds, soft, nontender, no hepatosplenomegaly Extremities/Musculoskelatal: no cyanosis or clubbing, extremities motor strength 5/5 Neurologic: PERRL, EOMI, accommodation nl, no face palsy, no dysarthria CN's II-XI intact bilaterally and moves all extremities Psychiatric: A+Ox3, euthymic affect Skin: no rashes, normal color, warm/dry Principal Diagnosis Recurrent pericardial effusion Discharge Data Allergies Allergy/AdvReac Type Severity Reaction Status Date / Time animal dander Allergy Intermediate ITCHY Verified 10/26/19 06:49 EYES, SNEEZING, CAN TRIGGER ASTHMA ATTACK. Consultations 10/26/19 09:05 ED Decision to Admit Stat 10/26/19 10:57 Consult Cardiology Routine Procedures Performed --CTA:Cardiomegaly and moderate pericardial effusion. Pericardial thickening is noted. Correlate clinically for evidence of pericarditis. Trace pleural effusions. There is ectasia of the aortic root which measures up to 4.0 cm. The thoracic aorta is otherwise normal in caliber. No dissection is seen. There is no airspace consolidation typical for pneumonia. There is no evidence of pulmonary embolus in the main, lobar, or proximal segmental pulmonary arteries. --ECHO: Circumferential pericardial effusion. Mild thickening of the pericardium. No signs of tamponade. Ordered Studies 10/26/19 06:47 CT angio chest dissec wo/w con Stat Hospital Course (1) Post pericardiotomy syndrome: (2) S/P aortic valve repair: Patient is a 24-year-old male with history of bicuspid aoritc valve s/p repair at [facility] in 08/12 and postoperative transient pneumothorax, pericarditis and pericardial effusion who is presenting today with chest pain and sinus tachycardia. Post pericardiotomy syndrome Recurrent pericardial effusion H/o of aortic valve repair in July 2019 with post-op complications i ncluding a large circumferential pericardial effusion s/p pericardiocentesis on September [address] Hilton --CTA:Cardiomegaly and moderate pericardial effusion. Pericardial thickening is noted. Correlate clinically for evidence of pericarditis. Trace pleural effusions. There is ectasia of the aortic root which measures up to 4.0 cm. The thoracic aorta is otherwise normal in caliber. No dissection is seen. There is no airspace consolidation typical for pneumonia. There is no evidence of pulmonary embolus in the main, lobar, or proximal segmental pulmonary arteries. --ECHO: Circumferential pericardial effusion. Mild thickening of the pericardium. No signs of tamponade. --On colchicine, ibuprofen prior to admission --Received IV Solu-Medrol 60 mg daily for 2 days --Transition to prednisone taper --30 mg to 2.5 mg over 6 weeks as per cardiology --Continue colchicine --Discontinue aspirin, ibuprofen --Appreciate cardiology input --Plan for repeat limited echo on November 03, 2019 at 7:15 AM as outpatient Needs follow-up with cardiology as outpatient--on November 05, 2019 at 12:[address] Sosa (3) Mild persistent asthma: Continue home inhalers No signs of exacerbation DVT Px: SCDs Code status: Full Code Disposition: Plan to discharge home today Total Time Total Time Spent Total Time Spent (In Minutes): 39 minutes Total Time Includes: Examination of the Patient, Discharge Planning, Medication Reconciliation, Communication With Other Providers and Other Discharge Plan Discharge Items Patient Disposition: Home - Self-Care Reason For Visit: PERICARDIAL EFFUSION,PERICARDITIS Discharge Diagnosis: Recurrent pericardial effusion Activity: Per Instructions section Exercise/Sports: Gradually increase as tolerated Non-emergency contact: Primary Care Provider and [employer] Call non-emergency contact if: you have any medication questions, your symptoms worsen, your pain is not controlled, your pain is worsening, your pain is unusual for you, your pain is concerning for you and you have a fever Follow-up/Referrals: Aditya Tse, [Primary Care Provider] - Diet: Regular Addtl Attending Provider Instructions: Follow-up with your primary care physician Dr. Becerra on November 02, 2019 at 11:10 AM Follow-up with your drafter topographical Dr. Sosa on November 05, 2019 at 12:15 PM Get echocardiogram as scheduled on November 03, 2019 at 7:15 AM Complete the prednisone tapering course as recommended by your drafter topographical Prednisone taper course: Start taking prednisone 30 mg daily for 9 days then, 20 mg for 8 days then, 10 mg for 8 days then, 5 mg for 8 days then, 2.5 mg for 8 days Seek immediate medical attention if your symptoms reoccur or worsen Pending Studies at Discharge: No Stand-Alone Forms: My [facility], Smoking Cessation Medications and DC Order Prescriptions: New prednisone 10 mg tablet 10 mg PO UD Qty: 60 RF: 0 Continued metoprolol tartrate 50 mg Tablet 50 mg PO AMHS RF: 0 albuterol sulfate 90 mcg/actuation Hfa Aerosol Inhaler 2 puff INHALATION Q6H PRN (Reason: Shortness Of Breath Or Wheezing) RF: 0 Arnuity Ellipta 200 mcg/actuation Blister With Device 1 inh INHALATION DAILY RF: 0 pantoprazole 40 mg Tablet,Delayed Release (Dr/Ec) 40 mg PO QAM Qty: 30 RF: 0 colchicine [Colcrys] 0.6 mg Tablet 0.6 mg PO QAM Qty: 30 RF: 0 fexofenadine [Mary Allergy] 180 mg Tablet 180 mg PO DAILY RF: 0 Discontinued aspirin [Aspir-81] 81 mg Tablet,Delayed Release (Dr/Ec) 162 mg PO QDL RF: 0 ibuprofen 400 mg Tablet 400 mg PO BID RF: 0 Discharge Orders: Discharge Order (Routine); Ordered 10/27/19 Ordered By: Olu Aldana Admission Data Admit Date/Time: 10/26/19 09:33 Attending Provider: Olu Aldana Admit Provider: Kendal Real I. Primary Care Provider: Aditya Tse Other Providers: Kendal Real I. ; Vin Snyder Other Interventions: Discharge Summary Assessment (RN) Last Done: 10/27/19 14:07 DC Date/Time DO NOT enter until pt leaves facility: 10/27/19 15:00
== END 2019-10-27 15:00 | disposition home or self-care (01) | DRG 316 ==
LOC: ED 06:23 → SUATTDRO 09:33 → 2E 09:33